=== PATIENT | male | born 1940 | race Caucasian/White ===

== ENCOUNTER → 2017-04-06 | Outpatient (CLI) | payer OTHER ==
[~2017-04-06] MED LIST: AZOPT OPHTH1 %/10 M1 OPHTHALMIC; COMBIGAN EYE DR10 ML; COZAAR 25 MG TA25 M2 PO; DIPHENHIST50 MG PO; EYE DROPS; EYE DROPS OPHTHALMIC; GLIPIZIDE XL5 MG PO; GLUCOPHAGE1000 MG PO; LANTUS SOL100 UNIT/1 SQ; LANTUSSOLASTAR; MECLIZINE HCL12.5 MG PO; MEDROL32 MG PO; OCUVITE TABLET1 EAC1 PO; OMEPRAZOLE20 M2 PO; PRADAXA150 MG PO; TIMOLOL MA0.5 %/5 M2 OPHTHALMIC; XALATAN2.5 ML OPHTHALMIC
== END ==
LOC: MRI 14:02
DX: M25.472 Effusion, left ankle (principal); M25.572 Pain in left ankle and joints of left foot

== ENCOUNTER 2019-06-20 15:58 | Emergency (ER) | payer OTHER ==
[~2019-06-20] VITALS: Ht 172.7 cm; Wt 77.1 kg
[2019-06-20 16:34] LABS: ABSOLUTE NEUTROPHILS 9.4 thou/uL (1.4-8.2); BASOPHILS 0.2 % (0.0-2.0); EOSINOPHILS 0.3 % (0.0-3.0); HEMATOCRIT 42.2 % (42.0-52.0); HEMOGLOBIN 14.1 gm/dL (14.0-18.0); LYMPHOCYTES 2.3 % (24.0-44.0); MCHC 33.5 g/dL (28.0-37.0); MCV 83.5 fL (80.0-100.0); PLATELET COUNT 127 thou/uL (150-400); POLYS 94.2 % (36.0-66.0); RBC 5.05 mil/uL (4.50-6.00); RDW 14.8 % (10.5-14.5)
[2019-06-20 16:38] LABS: ANION GAP 11 mmol/L (7-16); BUN 41 mg/dL (7-18); CALCIUM 9.1 mg/dL (8.5-10.1); CHLORIDE 99 mmol/L (98-107); CO2 25 mmol/L (21-32); CREATININE 1.9 mg/dL (0.7-1.3); GLUCOSE 125 mg/dL (74-106); SODIUM 135 mmol/L (136-145)
[2019-06-20 16:49] LABS: ALBUMIN 3.7 g/dL (3.4-5.0); MAGNESIUM 1.8 mg/dL (1.8-2.4); SGOT 23 U/L (15-37); SGPT 24 U/L (30-65); TOTAL BILIRUBIN 0.8 mg/dL (<0.1-1.0); TOTAL PROTEIN 8.3 g/dL (6.4-8.2); TROPONIN-I <0.06 ng/mL (<0.06)
[2019-06-20 17:04] VITALS: BP 170/81
[2019-06-20] MEDS ORDERED: PROSCAR 5MG TABL5 MG PO (17:54)
[2019-06-20] MEDS ORDERED: LANTUS100 UNIT/M SUBQ (17:54)
[2019-06-20] MEDS ORDERED: FLOMAX0.4 MG PO (17:55)
[2019-06-20 17:57] LABS: URINE BILIRUBIN NEGATIVE (Negative); URINE BLOOD 2+ (Negative); URINE CLARITY CLEAR; URINE COLOR YELLOW; URINE GLUCOSE-RANDOM* NEGATIVE (Negative); URINE KETONES NEGATIVE (Negative); URINE LEUKOCYTES-REFLEX NEGATIVE (Negative); URINE NITRITE-REFLEX NEGATIVE (Negative); URINE PROTEIN (DIPSTICK) 2+ (Negative); URINE SPECIFIC GRAVITY 1.025 (1.005-1.035); URINE UROBILINOGEN 0.2 E.U./dl (0.2-1.0)
[2019-06-20 18:04] LABS: SQUAMOUS 0-3 Few /LPF (0-3); URINE WBC-REFLEX 0-5 Rare /HPF (0-5)
[2019-06-20 18:05] LABS: BACTERIA-REFLEX None Seen /HPF (None Seen); CRYSTALS None Seen /LPF (None Seen); HYALINE CASTS 0-3 Few /LPF (None Seen); URINE RBC >20 Many /HPF (0-2)
--- NOTE | 2019-06-22 08:25 | EKG ---
[address] [place] [address] ELECTROCARDIOGRAM REPORT Name: SANG CARNEY Room [facility]: [facility] [id number] Admission: 06/20/19 Attend Phys: Discharge: 06/20/19 Date of : 36 Report #: [id number] THIS REPORT FOR: //name// [facility] ED Test Date: 2019-06-20 Test Time: 16:37:41 Pat Name: SANG CARNEY Department: Room: Gender: M Senior Search Marketing Analyst: EDEL : 1940 Requested By: Getachew Batista Order Number: [id number] MD: Jesus Howard Measurements Intervals [place] Rate: 98 P: [place]: QRS: -54 QRSD: 122 T: 117 QT: 364 QTc: 465 Interpretive Statements Atrial fibrillation Left bundle branch block Compared to ECG 12/20/2012 13:45:47 Left bundle-branch block now present Left ventricular hypertrophy no longer present Left anterior fascicular block no longer present Electronically Signed On 06-22-2019 8:25:08 CDT by Jesus Howard [email or web address] <ELECTRONICALLY SIGNED> By: Jesus Howard MD 06/22/19 0825 [id number] [id number] Jesus Howard MD /VICKI
== END 2019-06-20 19:00 | disposition home or self-care (01) ==
LOC: ER 15:58
PROVIDERS: Emergency Medicine
DX: R42 Dizziness and giddiness (principal); I10 Essential (primary) hypertension; E11.9 Type 2 diabetes mellitus without complications; K21.9 Gastro-esophageal reflux disease without esophagitis; I48.91 Unspecified atrial fibrillation; Z87.891 Personal history of nicotine dependence; Z90.89 Acquired absence of other organs; Z79.4 Long term (current) use of insulin; Z91.041 Radiographic dye allergy status

== ENCOUNTER → 2020-04-01 | Outpatient (CLI) | payer OTHER ==
[~2020-04-01] MED LIST changes: +FLOMAX0.4 MG PO; +LANTUS100 UNIT/M SUBQ; +PROSCAR 5MG TABL5 MG PO
== END ==
LOC: SJCVC 15:10
PROVIDERS: ATTEND Internal Medicine
DX: R94.31 Abnormal electrocardiogram [ECG] [EKG] (principal); I48.21 Permanent atrial fibrillation; I35.0 Nonrheumatic aortic (valve) stenosis; E78.5 Hyperlipidemia, unspecified; I12.9 Hypertensive chronic kidney disease with stage 1 through stage 4 chronic kidney disease, or unspecified chronic kidney disease; E11.22 Type 2 diabetes mellitus with diabetic chronic kidney disease; N18.3 Chronic kidney disease, stage 3 (moderate); I65.23 Occlusion and stenosis of bilateral carotid arteries; E11.51 Type 2 diabetes mellitus with diabetic peripheral angiopathy without gangrene

== ENCOUNTER → 2020-06-21 | Outpatient (CLI) | payer OTHER | LOC: MRI 10:02 | PROVIDERS: ATTEND Internal Medicine | DX: I67.89 Other cerebrovascular disease (principal); R26.81 Unsteadiness on feet; G31.9 Degenerative disease of nervous system, unspecified; G93.89 Other specified disorders of brain; K11.8 Other diseases of salivary glands ==

== ENCOUNTER → 2020-10-01 | Outpatient (CLI) | payer OTHER | LOC: SJCVCIMAG 09:14 | PROVIDERS: ATTEND Internal Medicine | DX: I35.1 Nonrheumatic aortic (valve) insufficiency (principal); R94.31 Abnormal electrocardiogram [ECG] [EKG]; I44.7 Left bundle-branch block, unspecified; I48.21 Permanent atrial fibrillation; I73.9 Peripheral vascular disease, unspecified; E78.5 Hyperlipidemia, unspecified; E11.22 Type 2 diabetes mellitus with diabetic chronic kidney disease; I13.10 Hypertensive heart and chronic kidney disease without heart failure, with stage 1 through stage 4 chronic kidney disease, or unspecified chronic kidney disease; N18.30 Chronic kidney disease, stage 3 unspecified; I65.23 Occlusion and stenosis of bilateral carotid arteries; Z79.82 Long term (current) use of aspirin; Z79.899 Other long term (current) drug therapy; Z87.891 Personal history of nicotine dependence ==

== ENCOUNTER 2021-01-24 14:11 | Inpatient (IN) | payer OTHER ==
[~2021-01-24] VITALS: Ht 172.7 cm; Wt 69.1 kg
[2021-01-24 14:12] VITALS: BP 159/94
[2021-01-24 14:26] LABS: ABSOLUTE NEUTROPHILS 6.5 thou/uL (1.4-8.2); BASOPHILS 0.2 % (0.0-2.0); EOSINOPHILS 0.1 % (0.0-3.0); HEMATOCRIT 49.3 % (42.0-52.0); HEMOGLOBIN 16.3 gm/dL (14.0-18.0); LYMPHOCYTES 4.3 % (24.0-44.0); MCH 28.4 pg (26.0-34.0); MCV 86.1 fL (80.0-100.0); PLATELET COUNT 144 thou/uL (150-400); POLYS 87.4 % (36.0-66.0); RBC 5.73 mil/uL (4.50-6.00); RDW 14.3 % (10.5-14.5); WBC 7.4 thou/uL (4.0-11.0)
[2021-01-24 14:34] LABS: CALCIUM 9.8 mg/dL (8.5-10.1); CREATININE 3.4 mg/dL (0.7-1.3); POTASSIUM 5.2 mmol/L (3.5-5.1)
[2021-01-24 14:41] LABS: TOTAL BILIRUBIN 1.3 mg/dL (0.2-1.0); TOTAL PROTEIN 8.5 g/dL (6.4-8.2)
[2021-01-24 17:33] LABS: URINE BILIRUBIN NEGATIVE (Negative); URINE BLOOD 3+ (Negative); URINE GLUCOSE-RANDOM* 3+ (Negative); URINE KETONES 1+ (Negative); URINE PROTEIN (DIPSTICK) 2+ (Negative); URINE UROBILINOGEN 0.2 E.U./dl (0.2-1.0)
[2021-01-24 17:35] LABS: URINE LEUKOCYTES-REFLEX 2+ (Negative); URINE NITRITE-REFLEX POSITIVE (Negative)
[2021-01-24 17:36] LABS: URINE CLARITY CLOUDY; URINE COLOR LIGHT YELLOW
[2021-01-24 17:41] LABS: SQUAMOUS None Seen /LPF (0-3)
[2021-01-24 17:42] LABS: BACTERIA-REFLEX >30 Many /HPF (None Seen); CASTS None Seen /LPF (None Seen); CRYSTALS None Seen /LPF (None Seen); URINE RBC 3-10 Few /HPF (0-2); URINE WBC-REFLEX >25 Many /HPF (0-5)
[2021-01-24 17:44] VITALS: BP 142/102
[2021-01-24 18:22] VITALS: BP 171/99
[2021-01-24 19:30] VITALS: BP 151/91
[2021-01-25] VITALS (7 sets, daily range): BP systolic 102–130; BP diastolic 54–82
[2021-01-25 01:06] LABS: GLYCOHEMOGLOBIN (HGB A1C) 13.6 % (4.8-5.6)
[2021-01-25 02:16] LABS: ABSOLUTE NEUTROPHILS 6.2 thou/uL (1.4-8.2); BASOPHILS 0.1 % (0.0-2.0); HEMATOCRIT 47.7 % (42.0-52.0); HEMOGLOBIN 15.2 gm/dL (14.0-18.0); LYMPHOCYTES 6.6 % (24.0-44.0); MCH 27.9 pg (26.0-34.0); MCHC 31.9 g/dL (28.0-37.0); MCV 87.5 fL (80.0-100.0); MONOCYTES 9.2 % (1.0-8.0); PLATELET COUNT 113 thou/uL (150-400); POLYS 84.1 % (36.0-66.0); RBC 5.45 mil/uL (4.50-6.00); RDW 14.3 % (10.5-14.5); WBC 7.3 thou/uL (4.0-11.0)
--- NOTE | 2021-01-25 02:17 | NUR ---
ASSUMED PT CARE AT NAGE OF SHIFT, PT ADMITTED FROM ER WITH LACTIC ACIDOSIS, UTI AND DEHYDRATION, PT IS SHIVERING COMPLAINING OF COLD, TEMP 100.3, BS 363, PRN TYL AND INSULIN GIVEN PER MAR, DENIES PAIN OR SOB, VSS, ADMISSION ASSESSMENT, EDUCATION AND HISTORY COMPLETED, CRITICAL LACTIC ACID AND PROCALCITONIN CALLED TO SHEET METAL LAYOUT WORKER, NO NEW ORDERS, PT REMAINS INCONTINENT OF URINE, ATTEMPTED TO PUT SALGADO CATHETER WITH NO SUCCESS, WILL CONTINUE TO MONITOR AND FOLLOW POC
[2021-01-25 02:24] LABS: CALCIUM 8.9 mg/dL (8.5-10.1); MAGNESIUM 2.1 mg/dL (1.8-2.4)
[2021-01-25 02:25] LABS: POTASSIUM 4.1 mmol/L (3.5-5.1)
--- NOTE | 2021-01-25 07:55 | NUR ---
TALKED TO PT'S TO GIVE UPDATE ON PT'S CONDITION. SON WILL COME TO HOSPITAL TO TRAILER RENTAL CLERK PT'S MEDS TO TAKE HOME. WILL CONTINUE TO ASSESS.
--- NOTE | 2021-01-25 13:25 | NUR ---
ASSESS WOUNDS LOWER EXTREMITIES WITH BRE CADET AND INSTRUCTED TO USE BACITRACIN AND DRESS WOUNDS.
--- NOTE | 2021-01-25 15:57 | NUR ---
PLACED DRESSING WITH VASELIN GAZE AND KERLEX LEFT MIDDLE TOES, TEGADERM RIGHT METATARSAL. WILL AWAIT WOUND CARE ON WEDNESDAY FOR MORE DETAILED RECOMEDATIONS.
--- NOTE | 2021-01-25 16:00 | NUR ---
DR. MCCABE INSTRUCT TO DISCONTINUE SERIAL LACTIC ACIDS.
--- NOTE | 2021-01-25 18:44 | NUR ---
PT HAVING LARGE INCONTINENT URINE WITH WET CHUXS. INSTRUCTED NO TO START A SALGADO BY DR. ETIENNE. TRIED CONDOM CATH HOWEVER WOULD NOT STAY ON. BEDSIDE REPORT GIVEN TO TY MONTGOMERY.
[2021-01-26 02:51] VITALS: BP 151/83
--- NOTE | 2021-01-26 04:53 | NUR ---
CARE ASSUMED AT CHANGE OF SHIFT, ALERT AND ORIENTED, FORGETFUL, DENIES PAIN OR SOB, VSS, ASSESSMENTS CHARTED, COTINUES ON IV FLUIDS, PT SLEPT MOST OF THE NIGHT, DENIES CONCERNS, WILL CONTINUE TO NONITOR AND FOLLOW POC, PLAN IS REHAB WHEN STABLE
[2021-01-26 09:02] VITALS: BP 134/71
--- NOTE | 2021-01-26 09:13 | HC ---
[facility] [place] [address] CONSULTATION Name: SANG CARNEY Room #: 216-P [facility] IN M.R.#: [id number] Admission: 01/24/21 Attend Phys: Peggy Merida MD Discharge: Date of : 38 Report #: [id number] THIS REPORT FOR: cc: Gerber Velazquez MD, Christopher B. MD [place], Allen B. MD ~ DATE OF SERVICE: 01/25/2021 WOUND CARE CONSULTATION NOTE REASON FOR CONSULTATION: Abrasions of legs and toes. HISTORY OF PRESENT ILLNESS: The patient is an 80-year-old gentleman brought by emergency medical services to [facility] Emergency Room for self-care deficit, recurrent falls, and altered mental status. He apparently was found in the bathroom for covered with feces, unable to get up. Family thought he is unable to care for himself. Since admission, he has been oriented, alert and conversant. Electrocardiogram showed atrial fibrillation with left bundle branch block. MEDICAL PROBLEMS: Dizziness, failure to thrive, hyponatremia, lactic acidosis, dehydration, history of urinary tract infection. ALLERGIES: IODINATED CONTRAST MEDIA. LABORATORY DATA: White blood count 7.3, hemoglobin 15.2, hematocrit 47.7, glucose 193. PHYSICAL EXAMINATION: GENERAL: Shows a thin elderly gentleman who is alert and conversant. HEENT: Mucous membranes are moist. NECK: Supple. ABDOMEN: Scaphoid. LUNGS: Respirations unlabored. EXTREMITIES: Shows some skin pigment deposition of both lower legs due to the ankle, indicative of chronic venous stasis. The patient has scattered small abrasions of his anterior pretibial leg, the largest measuring 1 cm x 1 cm. These are superficial, has some abrasions of skin of the toes as well. These are scattered and small, and not cellulitic. The patient states "I have long fingernails." IMPRESSION: 1. Deficit of self-care. 2. Altered mental status. 3. Debility and immobility. [facility] [address] [place] [address] CONSULTATION Name: SANG CARNEY Room #: 216-P [facility] IN M.R.#: [id number] Admission: 01/24/21 Attend Phys: Peggy Merida MD Discharge: Date of : 38 Report #: [id number] 4. Abrasions of bilateral legs and toes, superficial and not cellulitic. 5. Venous insufficiency of lower extremities. PLAN: We will care for the superficial abrasions of his legs, feet and toes with topical bacitracin with Xeroform wrapped around the toes. Foam borders on the abrasions of his legs. Wound care team will follow. <ELECTRONICALLY SIGNED> By: Facundo Montana MD 01/26/21 0913 1329 1339 Facundo Montana MD /nt
[2021-01-26 11:43] LABS: CALCIUM 8.1 mg/dL (8.5-10.1); CREATININE 3.3 mg/dL (0.7-1.3); POTASSIUM 4.6 mmol/L (3.5-5.1)
[2021-01-26 12:44] VITALS: BP 127/71
[2021-01-26 16:10] VITALS: BP 126/78
--- NOTE | 2021-01-26 18:41 | NUR ---
PATIENT AWAKE FOR MOST MEALS BUT ONLY EATS LESS THAN 50% WHEN ENCOURAGED. HE DENIES PAIN. BLADDER SCAN INDICATED GREATER THAN 400MLS. CALLED PLACED UROLOGY. NEW ORDERS FOR FLOMAX. UROLOGY STATED 400MLS IS COMMON FOR PATIENT AT THIS AGE AND NO NEED TO ANY FURTHER INTERVENTION.
[2021-01-26 19:22] VITALS: BP 150/73
[2021-01-27 03:13] LABS: CREATININE 3.4 mg/dL (0.7-1.3); POTASSIUM 3.7 mmol/L (3.5-5.1)
--- NOTE | 2021-01-27 03:18 | NUR ---
ASSESSMENTS CHARTED, MEDS CHARTED GIVEN. PATIENT RESTING IN BED DURING SHIFT. CONFUSED AND FORGETFUL. IT HELPS TO TELL THE PATIENT WHAT YOU ARE GOING TO DO PRIOR TO DOING IT SINCE HE IS LEGALLY BLIND. IT PREVENTS HIM FROM BEING STARTLED AND FEELING OUT OF CONTROL. UROLOGIST SAW THE PATIENT, FEELS PATIENT IS AT BASELINE WITH RETENTION AND URINE FLOW. PATIENT WAS BLADDER SCANNED WITH 324 RETAINED. NO NEED TO STRAIGHT CATH PATIENT AT THIS TIME. WARM COMPRESS SUGGESTED. FALL PRECAUTIONS IN PLACE DURING SHIFT. PATIENT IS AN UP WITH 2 ASSIST TO BSC. HAD BOWEL MOVMENT.
[2021-01-27 05:07] VITALS: BP 144/71
--- NOTE | 2021-01-27 07:16 | EKG ---
[address] [place] [address] ELECTROCARDIOGRAM REPORT Name: ANGELIKASANGSTEPHANIE CADENA Room #: 216-P ADM IN M.R.#: [id number] Admission: 01/24/21 Attend Phys: Peggy Merida MD Discharge: Date of : 38 Report #: [id number] [facility] ED Test Date: 2021-01-24 Test Time: 15:27:10 Pat Name: SANG CARNEY Department: Room: 216 Gender: M Skate Maker: : 1940 Requested By: Juan Osei Order Number: [id number] MD: Mendel Bates Measurements Intervals [place] Rate: 89 P: [place]: QRS: -65 QRSD: 129 T: 74 QT: 372 QTc: 453 Interpretive Statements Atrial fibrillation Left bundle branch block Compared to ECG 06/20/2019 16:37:41 No significant changes Electronically Signed On 01-27-2021 7:16:09 CDT by Mendel Bates [email or web address] <ELECTRONICALLY SIGNED> By: Mendel Bates MD, [facility] 01/27/21 0716 1527 1527 Mendel Bates MD, FACC /EPI
--- NOTE | 2021-01-27 07:17 | EKG ---
[address] [place] [address] ELECTROCARDIOGRAM REPORT Name: ANGELIKASANGSTEPHANIE CADENA Room #: 216-P ADM IN M.R.#: [id number] Admission: 01/24/21 Attend Phys: Peggy Merida MD Discharge: Date of : 38 Report #: [id number] [facility] Test Date: 2021-01-24 Test Time: 19:37:37 Pat Name: SANG CARNEY Department: Room: 216 P Gender: M Vision Impaired Teacher: FSCHWALBE : 1940 Requested By: Peggy Merida Order Number: [id number] MD: Mendel Bates Measurements Intervals [place] Rate: 125 P: [place]: QRS: -60 QRSD: 126 T: 121 QT: 325 QTc: 469 Interpretive Statements Atrial fibrillation Left bundle branch block Baseline wander in lead(s) V5 Compared to ECG 01/24/2021 15:27:10 No significant changes Electronically Signed On 01-27-2021 7:17:31 CDT by Mendel Bates [email or web address] <ELECTRONICALLY SIGNED> By: Mendel Bates MD, [facility] 01/27/21 0717 36 36 Mendel Bates MD, FAC /EPI
[2021-01-27 07:30] VITALS: BP 135/74
[2021-01-27 11:30] VITALS: BP 122/72
[2021-01-27 16:15] VITALS: BP 120/62
--- NOTE | 2021-01-27 17:48 | NUR ---
Met with patient who resides at home alone. Patient fell at home. Cannot recall how long he was on the floor. Patient independent with adls captain's assistant. He is blind. All needs on one level in home. Has basement in home. Son drives patient to apts and delivers groceries. Discussed post acute care. Plan to call son regarding skilled list.
[2021-01-27 20:05] VITALS: BP 122/65
--- NOTE | 2021-01-28 02:17 | NUR ---
ASSESSMENTS CHARTED, MEDS CHARTED GIVEN. PATIENT RESTING IN BED DURING SHIFT. RECEIVING MAINTENANCE FLUIDS DURING SHIFT. PATIENT REMAINS INCONTINENT OF URINE. FALL PRECAUTIONS IN PLACE DURING SHIFT.
[2021-01-28 04:30] VITALS: BP 124/69
[2021-01-28 07:18] LABS: CALCIUM 7.4 mg/dL (8.5-10.1); CREATININE 3.3 mg/dL (0.7-1.3); POTASSIUM 3.5 mmol/L (3.5-5.1)
--- NOTE | 2021-01-28 08:31 | NUR ---
Note Given: Y Facility List Provided:Y Facility Cady: None chosen at this time Ina Nelson NP discussed BPCI with this pt 01/27/2021
--- NOTE | 2021-01-28 08:32 | NUR ---
Note Given: Y Facility List Provided:Y Facility Cady: None chosen at this time Ina Nelson NP discussed BPCI with this pt 01/27/2021
[2021-01-28 09:35] VITALS: BP 130/67
[2021-01-28] MEDS ORDERED: KEFLEX500 M1 PO ×2 (11:07→15:11)
[2021-01-28] MEDS ORDERED: BAYER CHEWABLE81 MG PO (11:07)
[2021-01-28] MEDS ORDERED: FLOMAX0.4 MG PO (11:07)
[2021-01-28] MEDS ORDERED: BACITRACIN ZINC14 GM TOP (11:07)
[2021-01-28] MEDS ORDERED: MIRALAX17 GM PO (11:07)
--- NOTE | 2021-01-28 12:25 | NUR ---
Spoke with [facility] who was accepting of patient however will need further support from son for home. Sp with son at bedside. Discussed with plan for [facility] goal to be home and likely need for increase services in home. Son reports he can no longer live at home alone. Pipes are not working well in home. He cannot uses a walker in hallways. Patient with hx of falls at home. Son reports he has schizoprenia and cannot support any more than he is at this time. Referrals for post acute care for to [facility]. Requested COVID test.
[2021-01-28 12:42] VITALS: BP 121/68
[2021-01-28] MEDS ORDERED: SODIUM BICARBO650 M3 PO (15:11)
[2021-01-28 16:00] VITALS: BP 132/63
--- NOTE | 2021-01-28 16:59 | NUR ---
FAXED REFERRAL TO [facility] RECEIVED CONFIRMATION LEFT MSG WITH GEO IN ADM. FAXED REFERRAL TO [facility] RECEIVED CONFIRMATION AND LEFT MSG WITH SUSANA IN ADM.
--- NOTE | 2021-01-28 17:35 | NUR ---
Rigoberto questions if patient can sign consents to admit. Ignite sp with son and wants to schedule onsight eval in am. Son with no preference of facility he does not have DPOA medical or financial.
--- NOTE | 2021-01-28 18:08 | NUR ---
RECEIVED PT'S CARE AROUND 0715; PT. ON BED; RESTING WITH EYES CLOSED; AFIB ON THE MONITOR; EQUAL CHEST RISING NOTICED; DURING AM ASSESSMENT PT. AOX4; VERY FORGETFULL THROUGH THE DAY; RAVINDER [place] ROUNDING EARLY ON THE MORNING; PT. AGREED WITH SALGADO PLACEMENT; BLADDER SCANNER SHOWED 415 ML; PA ABLE TO PLACE SALGADO; OBTAINED 750 ML; POOR APPETITE THROUGH THE DAY; ST. "I AM TIRED"; "I WANT SLEEP"; INSULIN REPLACED; COVID TEST SEND; PER SOCIAL SERVICE WORKER WAITING ON PLACEMENT; PER DR. LOWELL BRISCOE TO CONTINUE FLUIDS; UP TO THE CHAIR WITH PT AND OT; ASSESSMENT CHARGED; FOLLOWING POC; WILL PASS ON REPORT;
[2021-01-28 20:15] VITALS: BP 143/76
[2021-01-29 04:30] VITALS: BP 141/66
[2021-01-29 05:23] LABS: ALBUMIN 1.6 g/dL (3.4-5.0); CALCIUM 7.4 mg/dL (8.5-10.1); PHOSPHORUS 2.7 mg/dL (2.5-4.9); POTASSIUM 3.3 mmol/L (3.5-5.1)
--- NOTE | 2021-01-29 05:32 | NUR ---
ASSESSMENTS CHARTED. MEDS CHARTED GIVEN. PATIENT RESTING WELL DURING SHIFT. SALGADO IN PLACE GOOD OUTPUT. FALL PRECAUTIONS IN PLACE DURING SHIFT.
[2021-01-29 08:00] VITALS: BP 134/59
--- NOTE | 2021-01-29 09:13 | NUR ---
ASSUMED PT CARE AT 0700. 0800- ASSESSMENT PERFORMED CHARTED, MEDICATION ADMINISTRATION. PT SITTING UP IN THE CHAIR FOR BREAKFAST. VSS. BRITTANEY CONTINUE TO MONITOR AND FOLLOW POC.
[2021-01-29] MEDS ORDERED: HUMALOG100 UNIT/1 SUBQ (11:57)
[2021-01-29] MEDS ORDERED: LANTUS100 UNIT/M SUBQ (11:57)
--- NOTE | 2021-01-29 12:03 | NUR ---
IGNITE IN ROOM TALKING WITH PATIENT ABOUT PLACEMENT FOLLOWING D/C. PT VOICES NO CONCERNS AT THIS TIME. VSS. WILL CONTINUE TO MONITOR AND FOLLOW POC.
[2021-01-29 12:40] VITALS: BP 133/75
--- NOTE | 2021-01-29 15:38 | NUR ---
PT'S SON DECIDED ON [facility]GNITE/[facility] RESORT NOTIFIED FACILITY OF CHOICE. FAXED DC ORDERS/SUMMARY TO FACILITY SPOKE WITH RAFA IN ADM SHE RECEIVED ORDERS AND ARRANGED WC VAN FOR 1600 TODAY. PT'S SON NOTIFIED OF DC AN TIME OF TRANSPORT AND IN AGREEMENT. UNIT NOTIFIED AND CHART COPY PER US. RN TO CALL REPORT TO [phone].
== END 2021-01-29 16:45 | DRG 871 ==
LOC: ER 14:11 → 2N 17:43 → EROBS 17:43 → 2N 18:21
PROVIDERS: Emergency Medicine; Hospitalist; Nurse Practitioner; Physician Assistant; ADMIT Hospitalist; ATTEND Hospitalist
DX: A41.9 Sepsis, unspecified organism (principal); J15.0 Pneumonia due to Klebsiella pneumoniae; N17.9 Acute kidney failure, unspecified; M62.82 Rhabdomyolysis; E87.1 Hypo-osmolality and hyponatremia; N13.6 Pyonephrosis; E44.0 Moderate protein-calorie malnutrition; E86.0 Dehydration; R53.81 Other malaise; N18.9 Chronic kidney disease, unspecified; E11.22 Type 2 diabetes mellitus with diabetic chronic kidney disease; I87.2 Venous insufficiency (chronic) (peripheral); S80.812A Abrasion, left lower leg, initial encounter; S80.811A Abrasion, right lower leg, initial encounter; X58.XXXA Exposure to other specified factors, initial encounter; N35.919 Unspecified urethral stricture, male, unspecified site; D69.6 Thrombocytopenia, unspecified; I12.9 Hypertensive chronic kidney disease with stage 1 through stage 4 chronic kidney disease, or unspecified chronic kidney disease; K21.9 Gastro-esophageal reflux disease without esophagitis; Z20.822 Contact with and (suspected) exposure to COVID-19; Z79.4 Long term (current) use of insulin; Z98.42 Cataract extraction status, left eye; Z79.899 Other long term (current) drug therapy; Z98.41 Cataract extraction status, right eye; Z91.041 Radiographic dye allergy status; Z87.891 Personal history of nicotine dependence; Y93.89 Activity, other specified; Y92.89 Other specified places as the place of occurrence of the external cause; Y99.8 Other external cause status; Z68.23 Body mass index [BMI] 23.0-23.9, adult
CPT/HCPCS: 10081

== ENCOUNTER 2021-03-21 07:38 | Inpatient (IN) | payer OTHER ==
[~2021-03-21] VITALS: Ht 152.4 cm; Wt 71.5 kg
--- NOTE | ~2021-03-21 | EMS ---
[place] [id number] EMS Patient Care Report Name: SANG CARNEY Room #: 216-P [facility] IN M.R.#: [id number] Admission: 03/21/21 Attend Phys: Carlos Mcnair Discharge: 03/24/21 Date of : 38 Report #: [id number] THIS REPORT FOR: //name// Report Transmitted: 03/24/2021 21:46 EMS Care Summary [place], [place]/[facility] Incident [id number] @ 03/21/2021 07:06 Incident Location [address] [place] [address] Patient SANG CARNEY Male, 81 Years 1940 Patient Address [address] [place] [address] Patient History Other,Congestive Heart Failure (CHF),Hypertension (HTN),Gastro-Esophageal Reflux Disease (GERD),Atrial Fibrillation,Glaucoma,Chronic Kidney Disease,Type 2 Diabetes, Patient Allergies Intravenous Dye, Patient Medications Tamsulosin, Finasteride, Omeprazole, Aspirin, Insulin, Docusate Sodium, Lantus, Chief Complaint Altered mental status Disposition Transported No Lights/[place] Dispatch Reason Diabetic Problem Transported To [facility] Narrative Called for an unconscious. Upon arrival, pt was unresponsive, diaphoretic with a low BS per home healthcare. 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 [address] [address] EMS Patient Care Report Name: SANG CARNEY Room #: 216-P [facility] IN M.R.#: [id number] Admission: 03/21/21 Attend Phys: Carlos Mcnair Discharge: 03/24/21 Date of : 38 Report #: [id number] Pt was ran the night before when for the same thing. IV and D10W. Pt now more awake, but still confused. Vitals obtained. Home healthcare said his son wanted him transported. He was moved to the EMS cot and loaded into the ambulance w/o incident. Vitals obtained. En route: no significant changes. RR to ER. Arrived: pt taken to ER, pt care & report to ER staff. Initial Vitals @07:27P: 49,SpO2: 95, @07:23P: 49,R: 16,Pain: 0/10,GCS: 7,Glucose: 23,CO: 0,SpO2: 98, @07:27P: 61,R: 16,BP: 163/84,Pain: 0/10,GCS: 14,Glucose: 109,SpO2: 95,Revised Trauma: 12,UT Suspected: false @07:25P: 54,R: 16,BP: 172/98,Pain: 0/10,GCS: 14,SpO2: 97,Revised Trauma: 12, Assessments @07:13MENTAL:Unresponsive,SKIN:Diaphoresis,HEENT:LUNG SOUNDS:ABDOMEN:PELVIS//GI:EXTREMITIES:Left Arm: No Abnormalities,Right Arm: No Abnormalities,Left Leg: No Abnormalities,Right Leg: No Abnormalities,PULSE:Radial: 2+ Normal,NEURO:No Abnormalities,@07:20MENTAL:Person Oriented,Place Oriented,Confused,SKIN:Cold,HEENT:LUNG SOUNDS:ABDOMEN:PELVIS//GI:EXTREMITIES:Left Arm: No Abnormalities,Right Arm: No Abnormalities,Left Leg: No Abnormalities,Right Leg: No Abnormalities,PULSE:Radial: 2+ Normal,NEURO:No Abnormalities, Impression Diabetic Hypoglycemia Procedures @07:15Saline Lock 8cc (18 ga) Site: Forearm-RightResponse: UnchangedSucceeded@07:26StretcherResponse: Unchanged@07:243-Lead ECGResponse: UnchangedSucceeded@07:17Dextrose 10% - 250 Milliliters (ml) - Intravenous (IV)Response: Improved@07:13ALS AssessmentResponse: UnchangedSucceeded Timeline 07:05,Call Received 07:05,Dispatch Notified 07:06,Dispatched 07:07,En Route 07:12,On Scene 07:13,At Patient 07:13,ALS Assessment,Response: UnchangedSucceeded, 07:15,Saline Lock 8cc 18 ga Site: Forearm-Right,Response: UnchangedSucceeded, 07:17,Dextrose 10% - 250 Milliliters (ml) - Intravenous (IV),Response: Improved 07:23,BP: / M,PULSE: 49,RR: 16 R,SPO2: 98 Ox,ETCO2: ,B,PAIN: 0,GCS: 7, 07:24,3-Lead ECG,Response: UnchangedSucceeded, 07:25,BP: 172/98 M,PULSE: 54,RR: 16 R,SPO2: 97 Ox,ETCO2: ,BG: ,PAIN: 0,GCS: 14, [facility] [address] [place] [address] EMS Patient Care Report Name: SANG CARNEY Room #: 216-P [facility] IN M.R.#: [id number] Admission: 03/21/21 Attend Phys: Carlos Mcnair Discharge: 03/24/21 Date of : 38 Report #: [id number] 07:26,Stretcher,Response: Unchanged 07:27,BP: / M,PULSE: 49,RR: R,SPO2: 95 Ox,ETCO2: ,BG: ,PAIN: ,GCS: , 07:27,Depart Scene 07:27,BP: 163/84 M,PULSE: 61,RR: 16 R,SPO2: 95 Ox,ETCO2: ,B,PAIN: 0,GCS: 14, 07:45,At Destination 08:00,Call Closed Disclaimer v1.1 Copyright 2020 [employer] This EMS Care Summary contains data elements from the applicable legal record (which may be displayed differently). It is designed to provide pertinent information for the following purposes: continuity of care, clinical quality, and state data reporting. The complete legal record is available to ED staff and administrators of the receiving hospital in [facility]'s Patient Tracker. All data is provided "as is."
[~2021-03-21 07:38] MED LIST changes: +BACITRACIN ZINC14 GM TOP; +BAYER CHEWABLE81 MG PO; +HUMALOG100 UNIT/1 SUBQ; +KEFLEX500 M1 PO; +MIRALAX17 GM PO; +SODIUM BICARBO650 M3 PO
[2021-03-21 07:39] VITALS: BP 182/93
[2021-03-21 08:17] LABS: ABSOLUTE NEUTROPHILS 4.9 thou/uL (1.4-8.2); BASOPHILS 0.6 % (0.0-2.0); EOSINOPHILS 1.4 % (0.0-3.0); HEMATOCRIT 39.4 % (42.0-52.0); HEMOGLOBIN 12.6 gm/dL (14.0-18.0); LYMPHOCYTES 24.9 % (24.0-44.0); MCH 27.4 pg (26.0-34.0); MCV 85.6 fL (80.0-100.0); MONOCYTES 7.8 % (1.0-8.0); PLATELET COUNT 222 thou/uL (150-400); POLYS 65.3 % (36.0-66.0); RBC 4.61 mil/uL (4.50-6.00); RDW 15.5 % (10.5-14.5); WBC 7.5 thou/uL (4.0-11.0)
[2021-03-21 08:33] LABS: CALCIUM 9.2 mg/dL (8.5-10.1); POTASSIUM 4.5 mmol/L (3.5-5.1)
[2021-03-21 08:34] LABS: APTT 28.4 Seconds (24.5-32.8); INR 1.07; PROTIME 11.6 Seconds (10.5-12.1)
[2021-03-21 08:38] LABS: ALBUMIN 3.1 g/dL (3.4-5.0); TOTAL BILIRUBIN 0.4 mg/dL (0.2-1.0); TOTAL PROTEIN 8.8 g/dL (6.4-8.2)
--- NOTE | 2021-03-21 09:22 | EKG ---
[address] [address] ELECTROCARDIOGRAM REPORT Name: SANG CARNEY TAMMI [id number] Admission: 03/21/21 Attend Phys: Discharge: Date of : 38 Report #: [id number] [facility] ED Test Date: 2021-03-21 Test Time: 08:59:33 Pat Name: SANG CARNEY Department: Room: Gender: M Bread Panner: KF : 1940 Requested By: Min Garvey Order Number: [id number] MD: Mendel Bates Measurements Intervals [place] Rate: 66 P: [place]: QRS: -48 QRSD: 142 T: 59 QT: 516 QTc: 541 Interpretive Statements Atrial fibrillation Left bundle branch block Compared to ECG 01/24/2021 19:37:37 No significant changes Electronically Signed On 03-21-2021 9:21:55 CDT by Mendel Bates [email or web address] <ELECTRONICALLY SIGNED> By: Mendel Bates MD, [facility] 03/21/21 0921 0859 0859 Mendel Bates MD, FACC /EPI
[2021-03-21 09:53] VITALS: BP 133/65
[2021-03-21 10:15] LABS: URINE BILIRUBIN NEGATIVE (Negative); URINE BLOOD 2+ (Negative); URINE CLARITY SL CLOUDY; URINE COLOR OTHER; URINE GLUCOSE-RANDOM* NEGATIVE (Negative); URINE KETONES NEGATIVE (Negative); URINE LEUKOCYTES-REFLEX TRACE (Negative); URINE NITRITE-REFLEX NEGATIVE (Negative); URINE PROTEIN (DIPSTICK) 1+ (Negative); URINE UROBILINOGEN 0.2 E.U./dl (0.2-1.0)
[2021-03-21 10:20] VITALS: BP 163/98
[2021-03-21 10:22] LABS: URINE WBC-REFLEX 6-15 Few /HPF (0-5)
[2021-03-21 10:23] LABS: CASTS None Seen /LPF (None Seen); CRYSTALS None Seen /LPF (None Seen); SQUAMOUS None Seen /LPF (0-3); URINE RBC >20 Many /HPF (NONE SEEN)
[2021-03-21 10:25] LABS: BACTERIA-REFLEX 1-9 Few /HPF (None Seen)
[2021-03-21 11:34] VITALS: BP 140/77
[2021-03-21 16:00] VITALS: BP 138/72
[2021-03-21 19:18] VITALS: BP 143/79
[2021-03-22 03:30] VITALS: BP 137/66
[2021-03-22 03:36] LABS: BASOPHILS 0.5 % (0.0-2.0); EOSINOPHILS 3.8 % (0.0-3.0); HEMATOCRIT 30.6 % (42.0-52.0); LYMPHOCYTES 31.8 % (24.0-44.0); MCH 27.4 pg (26.0-34.0); MCHC 32.7 g/dL (28.0-37.0); MCV 83.7 fL (80.0-100.0); MONOCYTES 7.3 % (1.0-8.0); PLATELET COUNT 161 thou/uL (150-400); POLYS 56.6 % (36.0-66.0); RBC 3.65 mil/uL (4.50-6.00); RDW 15.3 % (10.5-14.5); WBC 5.2 thou/uL (4.0-11.0)
[2021-03-22 04:01] LABS: ALBUMIN 2.3 g/dL (3.4-5.0); CALCIUM 8.2 mg/dL (8.5-10.1); CREATININE 1.8 mg/dL (0.7-1.3); PHOSPHORUS 3.3 mg/dL (2.6-4.7); POTASSIUM 4.4 mmol/L (3.5-5.1)
[2021-03-22 08:00] VITALS: BP 146/76
[2021-03-22 11:30] VITALS: BP 156/79
[2021-03-22 15:20] VITALS: BP 135/73
[2021-03-22 19:20] VITALS: BP 141/72
[2021-03-23 05:02] VITALS: BP 158/68
[2021-03-23 07:28] VITALS: BP 147/70
[2021-03-23 11:42] VITALS: BP 148/74
[2021-03-23 15:45] VITALS: BP 144/66
[2021-03-23 20:16] VITALS: BP 146/86
[2021-03-24 03:59] VITALS: BP 150/62
[2021-03-24 05:00] LABS: ALBUMIN 2.2 g/dL (3.4-5.0); CALCIUM 8.5 mg/dL (8.5-10.1); CREATININE 1.7 mg/dL (0.7-1.3); PHOSPHORUS 3.5 mg/dL (2.5-4.9); POTASSIUM 4.3 mmol/L (3.5-5.1)
[2021-03-24] MEDS ORDERED: CEFUROXIME500 MG PO (08:13)
[2021-03-24 10:41] VITALS: BP 150/62
== END 2021-03-24 12:50 | disposition home health service (06) | DRG 871 ==
LOC: ER 07:38 → EROBS 10:41 → 2N 10:41
PROVIDERS: Emergency Medicine; ADMIT Hospitalist; ATTEND Hospitalist
DX: A41.9 Sepsis, unspecified organism (principal); R65.21 Severe sepsis with septic shock; N17.0 Acute kidney failure with tubular necrosis; G93.41 Metabolic encephalopathy; N17.9 Acute kidney failure, unspecified; K21.9 Gastro-esophageal reflux disease without esophagitis; I48.91 Unspecified atrial fibrillation; B96.1 Klebsiella pneumoniae [K. pneumoniae] as the cause of diseases classified elsewhere; R53.81 Other malaise; I12.9 Hypertensive chronic kidney disease with stage 1 through stage 4 chronic kidney disease, or unspecified chronic kidney disease; E11.22 Type 2 diabetes mellitus with diabetic chronic kidney disease; N18.9 Chronic kidney disease, unspecified; D69.6 Thrombocytopenia, unspecified; N30.90 Cystitis, unspecified without hematuria; H54.8 Legal blindness, as defined in USA; R68.0 Hypothermia, not associated with low environmental temperature; E11.649 Type 2 diabetes mellitus with hypoglycemia without coma; Z98.42 Cataract extraction status, left eye; Z98.41 Cataract extraction status, right eye; Z79.4 Long term (current) use of insulin; Z79.82 Long term (current) use of aspirin; Z91.041 Radiographic dye allergy status; Z79.899 Other long term (current) drug therapy; Z87.891 Personal history of nicotine dependence
CPT/HCPCS: 10081; 10194

== ENCOUNTER → 2021-04-08 | Outpatient (CLI) | payer OTHER ==
[~2021-04-08] MED LIST changes: +CEFUROXIME500 MG PO
== END ==
LOC: SJCVC 13:10
PROVIDERS: ATTEND Internal Medicine
DX: I48.21 Permanent atrial fibrillation (principal); R94.31 Abnormal electrocardiogram [ECG] [EKG]; I21.9 Acute myocardial infarction, unspecified; E11.22 Type 2 diabetes mellitus with diabetic chronic kidney disease; I12.9 Hypertensive chronic kidney disease with stage 1 through stage 4 chronic kidney disease, or unspecified chronic kidney disease; N18.30 Chronic kidney disease, stage 3 unspecified; E78.5 Hyperlipidemia, unspecified; I65.23 Occlusion and stenosis of bilateral carotid arteries; I35.0 Nonrheumatic aortic (valve) stenosis; I73.9 Peripheral vascular disease, unspecified; K22.70 Barrett's esophagus without dysplasia; K21.9 Gastro-esophageal reflux disease without esophagitis; G47.33 Obstructive sleep apnea (adult) (pediatric); E11.51 Type 2 diabetes mellitus with diabetic peripheral angiopathy without gangrene; I48.0 Paroxysmal atrial fibrillation; Z95.1 Presence of aortocoronary bypass graft; Z88.8 Allergy status to other drugs, medicaments and biological substances; Z79.82 Long term (current) use of aspirin; Z79.899 Other long term (current) drug therapy; Z87.891 Personal history of nicotine dependence; Z86.73 Personal history of transient ischemic attack (TIA), and cerebral infarction without residual deficits; Z82.49 Family history of ischemic heart disease and other diseases of the circulatory system

== ENCOUNTER → 2021-04-23 | Outpatient (CLI) | payer OTHER ==
[~2021-04-23] MED LIST changes: +BENADRYL25 MG PO; +COLACE100 MG PO; +DOXYCYCLINE 10100 MG PO; +LANTUS SUBQ; +METHYLPREDNISOL32 MG PO; +PLAVIX 75 MG TA75 MG PO; +VITAMIN C100 MG PO
== END ==
LOC: SJCVCIMAG 08:09
PROVIDERS: ATTEND Nuclear Medicine Nuclear Cardiology
DX: I70.203 Unspecified atherosclerosis of native arteries of extremities, bilateral legs (principal); E11.22 Type 2 diabetes mellitus with diabetic chronic kidney disease; I12.9 Hypertensive chronic kidney disease with stage 1 through stage 4 chronic kidney disease, or unspecified chronic kidney disease; N18.9 Chronic kidney disease, unspecified; E11.51 Type 2 diabetes mellitus with diabetic peripheral angiopathy without gangrene; I73.9 Peripheral vascular disease, unspecified; I35.0 Nonrheumatic aortic (valve) stenosis; I48.91 Unspecified atrial fibrillation; E78.5 Hyperlipidemia, unspecified; G47.33 Obstructive sleep apnea (adult) (pediatric); K22.70 Barrett's esophagus without dysplasia; I48.0 Paroxysmal atrial fibrillation; K21.9 Gastro-esophageal reflux disease without esophagitis; Z87.440 Personal history of urinary (tract) infections; Z87.891 Personal history of nicotine dependence; Z79.82 Long term (current) use of aspirin; Z79.4 Long term (current) use of insulin; Z79.899 Other long term (current) drug therapy; Z95.820 Peripheral vascular angioplasty status with implants and grafts

== ENCOUNTER 2021-04-25 16:23 | Inpatient (IN) | payer OTHER ==
[~2021-04-25] VITALS: Ht 170.2 cm; Wt 68.9 kg
[2021-04-25 11:17] LABS: HEMATOCRIT 32.6 % (42.0-52.0); HEMOGLOBIN 10.7 gm/dL (14.0-18.0); MCH 27.4 pg (26.0-34.0); MCHC 32.9 g/dL (28.0-37.0); MCV 83.5 fL (80.0-100.0); RBC 3.91 mil/uL (4.50-6.00); RDW 14.8 % (10.5-14.5); WBC 5.9 thou/uL (4.0-11.0)
[2021-04-25 12:09] LABS: CALCIUM 9.2 mg/dL (8.5-10.1); POTASSIUM 5.2 mmol/L (3.5-5.1)
[2021-04-25 17:50] VITALS: BP 132/78
[2021-04-25 19:05] VITALS: BP 132/78
--- NOTE | 2021-04-25 19:40 | NUR ---
PATIENT HERE FOR 3 HRS POST PROCEDURE. PATIENT DC TO HOME VIA WHEEL CHAIR AND PRIVATE VEHICLE. DC PAPERWORK DISCUSSED WITH PATIENT AND CAREGIVER AT BEDSIDE. PATIENT SCHEDULED TO RETURN WEDNESDAY FOR PROCEDURE. ALL QUESTIONS ANSWERED. IV REMOVED FROM RIGHT AC. VSS.
== END 2021-04-25 19:40 | disposition home or self-care (01) | DRG 272 ==
LOC: CATH 16:23 → 2N 16:24
PROVIDERS: ADMIT Nuclear Medicine Nuclear Cardiology; ATTEND Nuclear Medicine Nuclear Cardiology
PROC: B4181ZZ Fluoroscopy of Bilateral Renal Arteries using Low Osmolar Contrast (ICD-10-PCS; principal; 2021-04-25)
PROC: 04CM3ZZ Extirpation of Matter from Right Popliteal Artery, Percutaneous Approach (ICD-10-PCS; principal; 2021-04-25)
PROC: 04CT3ZZ Extirpation of Matter from Right Peroneal Artery, Percutaneous Approach (ICD-10-PCS; principal; 2021-04-25)
PROC: 047M34Z Dilation of Right Popliteal Artery with Drug-eluting Intraluminal Device, Percutaneous Approach (ICD-10-PCS; principal; 2021-04-25)
PROC: B41D1ZZ Fluoroscopy of Aorta and Bilateral Lower Extremity Arteries using Low Osmolar Contrast (ICD-10-PCS; principal; 2021-04-25)
PROC: 047T34Z Dilation of Right Peroneal Artery with Drug-eluting Intraluminal Device, Percutaneous Approach (ICD-10-PCS; principal; 2021-04-25)
DX: E11.51 Type 2 diabetes mellitus with diabetic peripheral angiopathy without gangrene (principal); I25.10 Atherosclerotic heart disease of native coronary artery without angina pectoris; I35.0 Nonrheumatic aortic (valve) stenosis; E78.5 Hyperlipidemia, unspecified; N18.9 Chronic kidney disease, unspecified; E11.22 Type 2 diabetes mellitus with diabetic chronic kidney disease; I12.9 Hypertensive chronic kidney disease with stage 1 through stage 4 chronic kidney disease, or unspecified chronic kidney disease; K21.9 Gastro-esophageal reflux disease without esophagitis; G47.33 Obstructive sleep apnea (adult) (pediatric); I48.0 Paroxysmal atrial fibrillation; Z98.49 Cataract extraction status, unspecified eye; Z82.49 Family history of ischemic heart disease and other diseases of the circulatory system; Z80.3 Family history of malignant neoplasm of breast; Z87.891 Personal history of nicotine dependence
CPT/HCPCS: 10081

== ENCOUNTER → 2021-04-30 | Outpatient (CLI) | payer OTHER ==
[~2021-04-30] VITALS: Ht 170.2 cm; Wt 69.1 kg
[2021-04-30 10:06] VITALS: BP 174/88
[2021-04-30 10:11] LABS: CALCIUM 8.8 mg/dL (8.5-10.1); CREATININE 1.9 mg/dL (0.7-1.3); POTASSIUM 5.1 mmol/L (3.5-5.1)
== END | disposition home or self-care (01) ==
LOC: CATH 07:50
PROVIDERS: ATTEND Nuclear Medicine Nuclear Cardiology
DX: E11.51 Type 2 diabetes mellitus with diabetic peripheral angiopathy without gangrene (principal); I70.248 Atherosclerosis of native arteries of left leg with ulceration of other part of lower leg; L97.929 Non-pressure chronic ulcer of unspecified part of left lower leg with unspecified severity; I10 Essential (primary) hypertension; I25.10 Atherosclerotic heart disease of native coronary artery without angina pectoris; E78.5 Hyperlipidemia, unspecified; K21.9 Gastro-esophageal reflux disease without esophagitis; I48.91 Unspecified atrial fibrillation; Z98.890 Other specified postprocedural states; Z79.899 Other long term (current) drug therapy; Z87.891 Personal history of nicotine dependence; Z79.4 Long term (current) use of insulin; Z91.041 Radiographic dye allergy status; Z79.01 Long term (current) use of anticoagulants

== ENCOUNTER 2021-05-14 14:56 | Inpatient (IN) | payer OTHER ==
[~2021-05-14] VITALS: Ht 172.7 cm; Wt 68.5 kg
[2021-05-14 15:01] VITALS: BP 129/65
[2021-05-14 16:05] LABS: ABSOLUTE NEUTROPHILS 3.9 thou/uL (1.4-8.2); BASOPHILS 0.6 % (0.0-2.0); HEMATOCRIT 33.4 % (42.0-52.0); LYMPHOCYTES 20.6 % (24.0-44.0); MCH 27.2 pg (26.0-34.0); MCHC 32.9 g/dL (28.0-37.0); MCV 82.5 fL (80.0-100.0); MONOCYTES 9.3 % (1.0-8.0); PLATELET COUNT 206 thou/uL (150-400); POLYS 59.5 % (36.0-66.0); RBC 4.05 mil/uL (4.50-6.00); RDW 14.8 % (10.5-14.5); WBC 6.5 thou/uL (4.0-11.0)
[2021-05-14 16:17] LABS: CALCIUM 8.8 mg/dL (8.5-10.1); CREATININE 2.1 mg/dL (0.7-1.3); POTASSIUM 3.6 mmol/L (3.5-5.1)
[2021-05-14 16:23] LABS: TOTAL BILIRUBIN 0.4 mg/dL (0.2-1.0)
[2021-05-14] MEDS ORDERED: MEN 50 PLUS MU1 EACH PO (16:37)
--- NOTE | 2021-05-14 16:44 | NUR ---
ROLLY (ASSISTANT ASSOCIATE PROFESSOR OF [facility]) WOULD LIKE TO BE CONTACTED REGARDING PATIENTS CARE. FAMILY LIVES OUT OF STATE. ROLLY #[phone] TITA (ROLLY'S BOSS) IS SECOND TO CALL TITA # [phone] HSEILA FROM [facility] COMES TO PATIENTS HOME TO CARE FOR CATHETER
[2021-05-14 23:08] VITALS: BP 138/64
[2021-05-14 23:58] VITALS: BP 138/60
--- NOTE | 2021-05-15 | NUR ---
CALLED ROLLY REGARDING PATIENTS PLACEMENT & MOVING TO NEW ROOM. LEFT VOICE MAIL.
[2021-05-15 05:32] LABS: HEMATOCRIT 30.2 % (42.0-52.0); HEMOGLOBIN 10.1 gm/dL (14.0-18.0); MCH 27.5 pg (26.0-34.0); MCHC 33.3 g/dL (28.0-37.0); MCV 82.7 fL (80.0-100.0); RBC 3.65 mil/uL (4.50-6.00); RDW 14.9 % (10.5-14.5)
[2021-05-15 05:57] LABS: CALCIUM 8.1 mg/dL (8.5-10.1); CREATININE 1.9 mg/dL (0.7-1.3)
--- NOTE | 2021-05-15 06:50 | NUR ---
PT ARRIVED TO THE UNIT FROM ED AT APPROXIMATELTY. ALERT/ORIENT TIMES THREE. SALGADO BAG FROM HOME NOTED WITH BLOOD TINGE OUT PUT. VSS, AFEBRILE. WILL CONTINUE TO MONITOR.
[2021-05-15 07:07] VITALS: BP 152/67
--- NOTE | 2021-05-15 16:04 | NUR ---
ASSESSMENT: CM REVIEWED CHART AND SPOKE WITH PATIENT AT THE BEDSIDE. PT WAS ADMITTED DUE TO DVT AND CELLULITIS. PT REPORTS THAT HE LIVES AT HOME AND HAS A CAREGIVER 17/05. CM SPOKE WITH PATIENTS SON TO VERIFY AND PT HAS 17/05 PRIVATE DUTY SERVICES THROUGH [facility]. CM SPOKE WITH TITA [phone] FROM [facility] AND CONFIRMED INFORMATION THAT SOMEONE IS WITH PATIENT 17/05 AND PT IS NORMALLY INDEPENDENT/STAND BY ASSIST. THEY ASSIST WITH MEAL PREP, MEDICATION REMINDERS, EMPTYING HIS CATHETER AND ANYTHING PT NEEDS. PT HAS A ROLLATER WALKER HE TYPICALLY USES. PT IS CURRENTLY ALSO IN SERVICE WITH [facility]. CM FAXED CLINICAL TO [facility] TO UPDATE. PT HAS ABOUT 2 STEPS TO ENTER THE HOME AND ALL HIS NEEDS CAN BE MET ON THE MAIN LEVEL. PT WAS AT [facility] IN JANUARY FOR A SNF STAY AND HAS BEEN IN SERVICE WITH SINCE. CM DISCUSSED ROLE. PT IS HOPEFUL HE WILL BE ABLE TO RETURN HOME WITH HOME HEALTH SERVICES. CM WILL CONTINUE TO FOLLOW.
--- NOTE | 2021-05-15 16:28 | NUR ---
ASSUMED CARE OF PT AT 0700 THIS MORNING. PT WAS A/OX4 WITH SOME CONFUSION. PT IS SEEN FOR CELLULITIS, ULCERATIONS ON TOES. PT WAS SEEN BY WOUND DR. FOR EVAL AND WOUND NURSEHAS RE-DRESSED THE 3RD AND 4TH DIGITS ON THE RT FOOT. ASSESSMENTS NOTED IN CHART OTHERWISE UNREMARKABLE. CALL LIGHT AND OTHER NEEDS ARE PLACED IN REACH. IV IN RT FA, SL, ABx. MEDS AND OTHER TX GIVEN NEEDED AND SCHEDULED. CONTINUED OBSERVING PT AND NOTED ANY CHANGES. ROLLY, FRAME SAMPLE AND PATTERN SUPERVISOR FROM HOME HEALTH CONTACTED ME ASKING IF I KNEW WHEN THE PT WOULD BE DISCHARGED. I TOLD HER MORE THAN LIKELY HE'LL BE HERE THROUGH THE WEEKEND. [phone] WOULD LIKE TO BE CONTACTED IF ANY CHANGES IN DISCHARGE.
[2021-05-15 16:33] VITALS: BP 145/73
[2021-05-15 20:11] VITALS: BP 154/73
--- NOTE | 2021-05-16 04:24 | NUR ---
Pt. rested quietly during the night when checked on during frequent rounds. He offers no c/o pain. Alert and oriented with some confusion on time. Bed alarm is on.
[2021-05-16 07:00] VITALS: BP 128/70
--- NOTE | 2021-05-16 10:07 | NUR ---
Assumed care of pt at 0700. Denies pain. Teran catheter in place. IR consulted. Antitiotics infusing. Q2h turn. Call light within reach. Fall precautions in place. Will continue to monitor.
[2021-05-16 14:01] VITALS: BP 128/70
[2021-05-16 16:00] VITALS: BP 119/43
--- NOTE | 2021-05-16 16:39 | NUR ---
ON-GOING ASSESSMENT: HARMAN REVIEWED CHART AND SPOKE WITH ATTENDING AND PT. IR HAS BEEN CONSULTED. PT WILL LIKELY DISCHARGE TOMORROW/THIS WEEKEND BACK HOME WITH IN HOUSE 17/05 [facility]. CONTACT TITA LEON FUR GLOSSER BENITO WHEN DISCHARGING AT [phone] TO NOTIFY OF DISCHARGE AND SHE WILL ARRANGE TRANSPORT. FAX ORDERS TO [phone]. ALSO NOTIFY [facility] [phone] AND FAX ORDERS TO THEM AT [phone]. PT HAS ALL NEEDED EQUIPMENT AT HOME. HARMAN ALSO MET WITH ROLLY VILA SURGICAL CLINICAL REVIEWER TO NOTIFY OF LIKELY DISCHARGE THIS WEEKEND. HARMAN ALSO SPOKE WITH PATIENTS SON SIMA TO UPDATE AND HE REQUEST TO BE CONTACTED AT THE TIME OF DISCHARGE AND IS AGREEABLE WITH THE PLAN [phone].
--- NOTE | 2021-05-16 16:44 | NUR ---
ON-GOING ASSESSMENT: HARMAN REVIEWED CHART AND SPOKE WITH ATTENDING AND PT. IR HAS BEEN CONSULTED. PT WILL LIKELY DISCHARGE TOMORROW/THIS WEEKEND BACK HOME WITH IN HOUSE 17/05 [facility] AND [facility]. CONTACT TITA LEON MARKING MACHINE TENDER BENITO WHEN DISCHARGING AT [phone] TO NOTIFY OF DISCHARGE AND SHE WILL ARRANGE TRANSPORT. FAX ORDERS TO [phone]. ALSO NOTIFY [facility] [phone] AND FAX ORDERS TO THEM AT [phone]. PT HAS ALL NEEDED EQUIPMENT AT HOME. HARMAN ALSO MET WITH ROLLY VILA CAFE COOK TO NOTIFY OF LIKELY DISCHARGE THIS WEEKEND. HARMAN ALSO SPOKE WITH PATIENTS SON SIMA TO UPDATE AND HE REQUEST TO BE CONTACTED AT THE TIME OF DISCHARGE AND IS AGREEABLE WITH THE PLAN [phone].
[2021-05-16 19:10] VITALS: BP 143/65
[2021-05-17 01:06] LABS: GLYCOHEMOGLOBIN (HGB A1C) 7.3 % (4.8-5.6)
--- NOTE | 2021-05-17 05:45 | NUR ---
PT DENIED PAIN SO FAR.BETADINE TO HIS BLE SECOND TOE.P CONT ON IV ABX.EDEMA TO HIS LE.PT AFEBRILE SO FAR.NO BM NOTED THIS SHIFT.PT ABLE TO MAKE HIS NEEDS KNOWN.TRUDI LIGHT WITHIN REACH.
[2021-05-17 07:19] VITALS: BP 136/63
[2021-05-17] MEDS ORDERED: VIBRAMYCIN 100100 M2 PO (11:43)
[2021-05-17] MEDS ORDERED: ELIQUIS5 MG PO (11:52)
--- NOTE | 2021-05-17 15:00 | NUR ---
PT ASSESSED AT START OF SHIFT. FEELING BETTER. EATING AND DRINKING WELL. URINE OUTPUT GOOD. PT TRANSFERRING BACK HOME W/ HOME CAREGIVERS AT THIS TIME.
== END 2021-05-17 15:16 | disposition home or self-care (01) | DRG 300 ==
LOC: ER 14:56 → EROBS 18:42 → 4S 18:42
PROVIDERS: Nurse Practitioner Family; ADMIT Hospitalist; ATTEND Hospitalist
DX: I82.431 Acute embolism and thrombosis of right popliteal vein (principal); N17.9 Acute kidney failure, unspecified; N13.30 Unspecified hydronephrosis; E44.0 Moderate protein-calorie malnutrition; I77.1 Stricture of artery; I82.411 Acute embolism and thrombosis of right femoral vein; I25.10 Atherosclerotic heart disease of native coronary artery without angina pectoris; K21.9 Gastro-esophageal reflux disease without esophagitis; H54.8 Legal blindness, as defined in USA; I12.9 Hypertensive chronic kidney disease with stage 1 through stage 4 chronic kidney disease, or unspecified chronic kidney disease; E11.51 Type 2 diabetes mellitus with diabetic peripheral angiopathy without gangrene; E11.22 Type 2 diabetes mellitus with diabetic chronic kidney disease; I48.91 Unspecified atrial fibrillation; N13.9 Obstructive and reflux uropathy, unspecified; N18.30 Chronic kidney disease, stage 3 unspecified; L97.529 Non-pressure chronic ulcer of other part of left foot with unspecified severity; G47.33 Obstructive sleep apnea (adult) (pediatric); E78.5 Hyperlipidemia, unspecified; L97.519 Non-pressure chronic ulcer of other part of right foot with unspecified severity; Z68.23 Body mass index [BMI] 23.0-23.9, adult; Z98.49 Cataract extraction status, unspecified eye; Z79.899 Other long term (current) drug therapy; Z79.01 Long term (current) use of anticoagulants; Z79.4 Long term (current) use of insulin; Z91.041 Radiographic dye allergy status
CPT/HCPCS: 10100; 10102

== ENCOUNTER → 2021-06-03 | Outpatient (CLI) | payer OTHER ==
[~2021-06-03] MED LIST changes: +ELIQUIS5 MG PO; +MEN 50 PLUS MU1 EACH PO; +VIBRAMYCIN 100100 M2 PO
== END ==
LOC: HYPER 07:50
PROVIDERS: ATTEND Emergency Medicine
DX: E11.621 Type 2 diabetes mellitus with foot ulcer (principal); L89.893 Pressure ulcer of other site, stage 3; L97.521 Non-pressure chronic ulcer of other part of left foot limited to breakdown of skin; L89.894 Pressure ulcer of other site, stage 4; L97.516 Non-pressure chronic ulcer of other part of right foot with bone involvement without evidence of necrosis; E11.51 Type 2 diabetes mellitus with diabetic peripheral angiopathy without gangrene; E11.22 Type 2 diabetes mellitus with diabetic chronic kidney disease; N18.9 Chronic kidney disease, unspecified; E11.21 Type 2 diabetes mellitus with diabetic nephropathy; I48.20 Chronic atrial fibrillation, unspecified; K21.9 Gastro-esophageal reflux disease without esophagitis; Z98.49 Cataract extraction status, unspecified eye; Z79.4 Long term (current) use of insulin; Z79.01 Long term (current) use of anticoagulants; Z79.82 Long term (current) use of aspirin

== ENCOUNTER → 2021-06-10 | Outpatient (CLI) | payer OTHER | LOC: HYPER 08:16 | PROVIDERS: ATTEND Emergency Medicine | DX: E11.621 Type 2 diabetes mellitus with foot ulcer (principal); L89.893 Pressure ulcer of other site, stage 3; L97.521 Non-pressure chronic ulcer of other part of left foot limited to breakdown of skin; L89.894 Pressure ulcer of other site, stage 4; L97.516 Non-pressure chronic ulcer of other part of right foot with bone involvement without evidence of necrosis; S91.115A Laceration without foreign body of left lesser toe(s) without damage to nail, initial encounter; E11.51 Type 2 diabetes mellitus with diabetic peripheral angiopathy without gangrene; E11.22 Type 2 diabetes mellitus with diabetic chronic kidney disease; N18.6 End stage renal disease; E11.21 Type 2 diabetes mellitus with diabetic nephropathy; I48.20 Chronic atrial fibrillation, unspecified; K21.9 Gastro-esophageal reflux disease without esophagitis; Z98.49 Cataract extraction status, unspecified eye; Z79.4 Long term (current) use of insulin; Z79.01 Long term (current) use of anticoagulants; Z79.82 Long term (current) use of aspirin; X58.XXXA Exposure to other specified factors, initial encounter; Y93.89 Activity, other specified; Y92.89 Other specified places as the place of occurrence of the external cause; Y99.8 Other external cause status ==

== ENCOUNTER → 2021-06-24 | Outpatient (CLI) | payer OTHER | LOC: HYPER 07:52 | PROVIDERS: ATTEND Emergency Medicine | DX: E11.621 Type 2 diabetes mellitus with foot ulcer (principal); L89.893 Pressure ulcer of other site, stage 3; L97.521 Non-pressure chronic ulcer of other part of left foot limited to breakdown of skin; L89.894 Pressure ulcer of other site, stage 4; L97.516 Non-pressure chronic ulcer of other part of right foot with bone involvement without evidence of necrosis; E11.51 Type 2 diabetes mellitus with diabetic peripheral angiopathy without gangrene; E11.22 Type 2 diabetes mellitus with diabetic chronic kidney disease; N18.6 End stage renal disease; E11.21 Type 2 diabetes mellitus with diabetic nephropathy; I48.20 Chronic atrial fibrillation, unspecified; K21.9 Gastro-esophageal reflux disease without esophagitis; Z98.49 Cataract extraction status, unspecified eye; Z79.4 Long term (current) use of insulin; Z79.01 Long term (current) use of anticoagulants; Z79.82 Long term (current) use of aspirin ==

== ENCOUNTER 2021-06-28 12:33 | Emergency (ER) | payer OTHER ==
[~2021-06-28] VITALS: Ht 172.7 cm; Wt 66.7 kg
[2021-06-28 14:09] LABS: URINE BILIRUBIN NEGATIVE (Negative); URINE BLOOD 3+ (Negative); URINE CLARITY SL CLOUDY; URINE COLOR YELLOW; URINE GLUCOSE-RANDOM* NEGATIVE (Negative); URINE KETONES NEGATIVE (Negative); URINE LEUKOCYTES-REFLEX 1+ (Negative); URINE NITRITE-REFLEX NEGATIVE (Negative); URINE PROTEIN (DIPSTICK) 1+ (Negative); URINE SPECIFIC GRAVITY 1.025 (1.005-1.035); URINE UROBILINOGEN 0.2 E.U./dl (0.2-1.0)
[2021-06-28 14:21] LABS: CASTS None Seen /LPF (None Seen); SQUAMOUS 0-3 Few /LPF (0-3); URINE RBC 3-10 Few /HPF (NONE SEEN); URINE WBC-REFLEX 6-15 Few /HPF (0-5)
[2021-06-28 14:22] LABS: BACTERIA-REFLEX 1-9 Few /HPF (None Seen); CRYSTALS None Seen /LPF (None Seen); YEAST-REFLEX Present (None Seen)
[2021-06-28] MEDS ORDERED: CEPHALEXIN500 MG PO (14:45)
[2021-06-28] MEDS ORDERED: NYSTATIN15 G3 TOP (15:04)
[2021-06-28 15:30] VITALS: BP 112/78
== END 2021-06-28 15:30 | disposition home or self-care (01) ==
LOC: ER 12:33
PROVIDERS: Emergency Medicine
DX: T83.018A Breakdown (mechanical) of other urinary catheter, initial encounter (principal); N39.0 Urinary tract infection, site not specified; K21.9 Gastro-esophageal reflux disease without esophagitis; I73.9 Peripheral vascular disease, unspecified; I10 Essential (primary) hypertension; I48.91 Unspecified atrial fibrillation; I25.10 Atherosclerotic heart disease of native coronary artery without angina pectoris; E78.5 Hyperlipidemia, unspecified; Z90.49 Acquired absence of other specified parts of digestive tract; Z90.89 Acquired absence of other organs; Z79.82 Long term (current) use of aspirin; Z79.899 Other long term (current) drug therapy; Z79.891 Long term (current) use of opiate analgesic; Z79.4 Long term (current) use of insulin; Z91.041 Radiographic dye allergy status; Y84.8 Other medical procedures as the cause of abnormal reaction of the patient, or of later complication, without mention of misadventure at the time of the procedure; Y92.89 Other specified places as the place of occurrence of the external cause

== ENCOUNTER → 2021-07-02 | Outpatient (CLI) | payer OTHER ==
[~2021-07-02] MED LIST changes: +CEPHALEXIN500 MG PO; +NYSTATIN15 G3 TOP
== END ==
LOC: HYPER 08:13
PROVIDERS: ATTEND Emergency Medicine
DX: E11.621 Type 2 diabetes mellitus with foot ulcer (principal); L89.893 Pressure ulcer of other site, stage 3; L97.521 Non-pressure chronic ulcer of other part of left foot limited to breakdown of skin; L89.894 Pressure ulcer of other site, stage 4; L97.516 Non-pressure chronic ulcer of other part of right foot with bone involvement without evidence of necrosis; E11.51 Type 2 diabetes mellitus with diabetic peripheral angiopathy without gangrene; E11.22 Type 2 diabetes mellitus with diabetic chronic kidney disease; N18.6 End stage renal disease; E11.21 Type 2 diabetes mellitus with diabetic nephropathy; I48.20 Chronic atrial fibrillation, unspecified; K21.9 Gastro-esophageal reflux disease without esophagitis; Z98.49 Cataract extraction status, unspecified eye; Z79.4 Long term (current) use of insulin; Z79.01 Long term (current) use of anticoagulants; Z79.82 Long term (current) use of aspirin

== ENCOUNTER 2021-07-03 14:00 | Emergency (ER) | payer OTHER ==
[~2021-07-03] VITALS: Ht 172.7 cm; Wt 68.0 kg
--- NOTE | ~2021-07-03 | EMS ---
[address] [address] EMS Patient Care Report Name: SANG CARNEY Room #: DEP MAITE Palacios#: [id number] Admission: 07/03/21 Attend Phys: Discharge: 07/03/21 Date of : 36 Report #: [id number] THIS REPORT FOR: //name// Report Transmitted: 07/03/2021 16:17 EMS Care Summary [facility] MED-ACT Incident [id number] @ 07/03/2021 12:34 Incident Location [address] [place] [address] Patient SANG CARNEY Male, 81 Years 1940 Patient Address [address] [place] [address] Patient History Diabetes,Atrial Fibrillation, Patient Allergies Dye allergy, Patient Medications Omeprazole, Minocycline, Cephalexin, Timolol, Lantus, ASA, Eliquis, Cipro, Docusate Sodium, Clopidogrel, Tamsulosin, Novolog, Chief Complaint low blood sugar Disposition Transported No Lights/[place] [facility] Reason Diabetic Problem Transported To [facility] Narrative Dispatched to the above doctor's office for a person with reported hypoglycemia. Arrived on scene to find pt. sitting in a reclining exam chair, AOx4, in no obvious distress, attended to by office staff and home health [address] [address] EMS Patient Care Report Name: SANG CARNEY Room #: DEP [facility] Palacios#: [id number] Admission: 07/03/21 Attend Phys: Discharge: 07/03/21 Date of : 38 Report #: [id number] providers who brought patient to his appointment. Staff report that the pt. 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 Several hours later the home health worker drove the pt. to his doctor appointment where they were met in the parking lot by the home health care dirt supervisor. The dirt supervisor stated that when she opened the door to help the pt. out of the car she immediately noticed he was diaphoretic. The staff member who drove the pt. informed the dirt supervisor that his blood sugar was low. Pt. was brought into the clinic and had his bG measured and found to be in the 50's. Doctor at the clinic stated he contacted 911 and gave the pt. seven 4 mg glucose tablets prior to EMS arrival. Home health dirt supervisor stated that the pt. is currently taking 3 different antibiotics which has been causing the pt. to have difficulty regulating his bG. Antibiotics were for UTI and yeast infection due to urinary catheter. Assessment, VS, bG as charted. Assisted pt. in eating peanut butter crackers and rechecked bG as charted. Initially the doctor on scene stated that he would like pt. to remain at the clinic while eating and waiting for his bG to normalize. After almost one hour without a rise in bG the pt's doctor agreed that the pt. should be transported to the ED for evaluation and monitoring. Assisted pt. to cot, secured with straps and moved cot to ambulance without incident. Biocom to ED, bedside report and transfer of care to ED staff at [facility]. 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,Surgical Mask on Patient, [facility] [address] [place] [address] EMS Patient Care Report Name: SANG CARNEY [id number] Admission: 07/03/21 Attend Phys: Discharge: 07/03/21 Date of : 38 Report #: [id number] BAG MAKING MACHINE TENDER,BP: / M,PULSE: ,RR: R,SPO2: Ox,ETCO2: ,B,PAIN: ,GCS: , 12:33,Call Received 12:33,Psap Call 12:34,Dispatched 12:35,En Route 12:43,On Scene 12:45,At Patient 12:47,BP: 157/91 M,PULSE: 72,RR: 18 R,SPO2: Ox,ETCO2: ,B,PAIN: 4,GCS: 15, 13:05,BP: / M,PULSE: ,RR: R,SPO2: Ox,ETCO2: ,B,PAIN: ,GCS: , 13:30,BP: / M,PULSE: ,RR: R,SPO2: Ox,ETCO2: ,B,PAIN: ,GCS: , 13:37,BP: / M,PULSE: 61,RR: R,SPO2: 58 Ox,ETCO2: ,BG: ,PAIN: ,GCS: , 13:38,BP: 141/81 M,PULSE: 78,RR: R,SPO2: 100 Ox,ETCO2: ,BG: ,PAIN: ,GCS: , 13:42,BP: / M,PULSE: ,RR: R,SPO2: Ox,ETCO2: ,B,PAIN: ,GCS: , 13:48,Depart Scene 13:50,BP: 137/80 M,PULSE: 81,RR: R,SPO2: 100 Ox,ETCO2: ,BG: ,PAIN: ,GCS: , 13:56,BP: 128/80 M,PULSE: 80,RR: R,SPO2: 100 Ox,ETCO2: ,BG: ,PAIN: ,GCS: , 13:58,At Destination 14:19,Call Closed Disclaimer v1.1 Copyright 2020 [employer] This EMS Care Summary contains data elements from the applicable legal record (which may be displayed differently). It is designed to provide pertinent information for the following purposes: continuity of care, clinical quality, and state data reporting. The complete legal record is available to ED staff and administrators of the receiving hospital in [facility]'s Patient Tracker. All data is provided "as is."
[2021-07-03 14:50] LABS: ABSOLUTE NEUTROPHILS 5.1 thou/uL (1.4-8.2); BASOPHILS 0.7 % (0.0-2.0); EOSINOPHILS 9.7 % (0.0-3.0); HEMATOCRIT 35.5 % (42.0-52.0); HEMOGLOBIN 11.3 gm/dL (14.0-18.0); LYMPHOCYTES 11.1 % (24.0-44.0); MCH 26.3 pg (26.0-34.0); MCHC 31.8 g/dL (28.0-37.0); MCV 82.6 fL (80.0-100.0); MONOCYTES 5.5 % (1.0-8.0); PLATELET COUNT 286 thou/uL (150-400); RDW 16.8 % (10.5-14.5)
[2021-07-03 14:58] LABS: CALCIUM 8.7 mg/dL (8.5-10.1); CREATININE 2.2 mg/dL (0.7-1.3); POTASSIUM 4.3 mmol/L (3.5-5.1)
[2021-07-03 15:04] LABS: ALBUMIN 2.7 g/dL (3.4-5.0); TOTAL BILIRUBIN 0.4 mg/dL (0.2-1.0); TOTAL PROTEIN 7.5 g/dL (6.4-8.2)
[2021-07-03 16:09] VITALS: BP 135/84
== END 2021-07-03 16:11 | disposition home or self-care (01) ==
LOC: ER 14:00
PROVIDERS: Emergency Medicine
DX: E11.649 Type 2 diabetes mellitus with hypoglycemia without coma (principal); K21.9 Gastro-esophageal reflux disease without esophagitis; I10 Essential (primary) hypertension; I48.91 Unspecified atrial fibrillation; E78.5 Hyperlipidemia, unspecified; Z90.49 Acquired absence of other specified parts of digestive tract; Z90.89 Acquired absence of other organs; Z79.4 Long term (current) use of insulin; Z79.899 Other long term (current) drug therapy; Z91.041 Radiographic dye allergy status

== ENCOUNTER 2021-07-19 09:28 | Emergency (ER) | payer OTHER ==
[~2021-07-19] VITALS: Ht 172.7 cm; Wt 68.0 kg
[2021-07-19] MEDS ORDERED: MACROBID 100 M100 M1 PO (12:09)
[2021-07-19 12:30] VITALS: BP 176/95
== END 2021-07-19 13:25 | disposition home or self-care (01) ==
LOC: ER 09:28 → EDBD 09:28 → ER 13:25
DX: T83.038A Leakage of other urinary catheter, initial encounter (principal); R33.9 Retention of urine, unspecified; I10 Essential (primary) hypertension; Z91.041 Radiographic dye allergy status; Z79.899 Other long term (current) drug therapy; Z79.4 Long term (current) use of insulin

== ENCOUNTER 2021-07-21 14:48 | Inpatient (IN) | payer OTHER ==
[~2021-07-21] VITALS: Ht 172.7 cm; Wt 62.1 kg
--- NOTE | ~2021-07-21 | O ---
[facility] [place] [address] OPERATIVE REPORT Name: SANG CARNEY Room #: 451-P ADM IN M.R.#: [id number] Admission: 07/21/21 Attend Phys: Price Macdonald MD Discharge: Date of : 38 Report #: [id number] THIS REPORT FOR: cc: Gerber Velazquez MD, Christopher B. MD Rizzi, Raymond M. DPM ~ DATE OF SERVICE: 07/24/2021 PREOPERATIVE DIAGNOSES: Bilateral diabetic foot ulcers with osteomyelitis. POSTOPERATIVE DIAGNOSES: Bilateral diabetic foot ulcers with osteomyelitis. PROCEDURE: Bilateral partial second ray resections. ANESTHESIA: General with a local block consisting of 10 mL of 0.5% Marcaine. TOURNIQUET: None. DESCRIPTION OF PROCEDURE: The patient was transferred to the operating room and placed on table in supine position. Bilateral lower extremities were prepped and draped in the usual sterile manner. Procedure #1, left partial second ray resection. Attention was directed to the left second digit where a racquet-type incision was made. Incision was carried down to bone and the second digit was excised completely and deep tissue from this toe was sent for aerobic, anaerobic and fungal. I dissected free the distal third of the metatarsal intraoperative sagittal saw. Particularly tension closure. It should be noted that during this dissection very minimal blood was noted. I removed the tendon and capsular tissue as well. I then closed the incision line with a combination of simple suture and horizontal suture technique and dressed with Xeroform, fluffs, Kerlix and an Mykel bandage loosely applied. Second procedure is as above, for the second digit, but with more bleeding. The patient's bilateral partial second ray resections because of osteomyelitis present. [facility] [address] [place] [address] OPERATIVE REPORT Name: SANG CARNEY Room #: 451-P ADM IN Suzanne#: [id number] Admission: 07/21/21 Attend Phys: Price Macdonald MD Discharge: Date of : 38 Report #: [id number] The angiogram will be done here in the next day or two. There is a possibility this will have not enough blood flow to heal. If it does, we will readdress the situation with possible transmet amputation or at a level that he wished that he will heal. By: 1518 1604 Clayton Ivy DPM /isidro
[~2021-07-21 14:48] MED LIST changes: +MACROBID 100 M100 M1 PO
[2021-07-21 14:57] VITALS: BP 149/71
[2021-07-21 16:22] LABS: ABSOLUTE NEUTROPHILS 3.3 thou/uL (1.4-8.2); BASOPHILS 0.8 % (0.0-2.0); EOSINOPHILS 18.3 % (0.0-3.0); HEMATOCRIT 34.2 % (42.0-52.0); HEMOGLOBIN 11.1 gm/dL (14.0-18.0); LYMPHOCYTES 22.2 % (24.0-44.0); MCH 26.5 pg (26.0-34.0); MCHC 32.6 g/dL (28.0-37.0); MCV 81.3 fL (80.0-100.0); PLATELET COUNT 175 thou/uL (150-400); POLYS 51.7 % (36.0-66.0); RDW 18.6 % (10.5-14.5); WBC 6.4 thou/uL (4.0-11.0)
[2021-07-21 17:08] LABS: ANISOCYTOSIS 2+
[2021-07-21 17:34] LABS: CALCIUM 8.8 mg/dL (8.5-10.1); CREATININE 1.6 mg/dL (0.7-1.3); POTASSIUM 3.8 mmol/L (3.5-5.1)
[2021-07-21 17:40] LABS: ALBUMIN 2.7 g/dL (3.4-5.0); TOTAL BILIRUBIN 0.4 mg/dL (0.2-1.0); TOTAL PROTEIN 7.5 g/dL (6.4-8.2)
[2021-07-22] MEDS ORDERED: THRIVITE RX TA1 EACH PO (00:42)
[2021-07-22] MEDS ORDERED: HUMALOG KW100 UNIT/1 SUBQ (00:53)
[2021-07-22 08:01] LABS: HEMATOCRIT 31.8 % (42.0-52.0); HEMOGLOBIN 10.1 gm/dL (14.0-18.0); MCH 25.7 pg (26.0-34.0); MCHC 31.8 g/dL (28.0-37.0); MCV 80.7 fL (80.0-100.0); RBC 3.94 mil/uL (4.50-6.00); RDW 18.5 % (10.5-14.5); WBC 5.2 thou/uL (4.0-11.0)
[2021-07-22 08:18] LABS: CALCIUM 8.6 mg/dL (8.5-10.1); CREATININE 1.6 mg/dL (0.7-1.3); POTASSIUM 3.8 mmol/L (3.5-5.1)
[2021-07-22 08:26] LABS: APTT 31.1 Seconds (24.5-32.8); INR 1.1; PROTIME 11.7 Seconds (9.3-11.4)
[2021-07-22 11:26] VITALS: BP 145/72
--- NOTE | 2021-07-22 13:58 | NUR ---
Pt STILL IN ED AWAITING BED. UNABLE TO EVAL Pt THIS DATE D/T SCHEDULE CONFLICT. WILL ATTEMPT TO EVAL TOMORROW AND HOPEFULLY THE Pt WILL BE ADMITTED TO A FLOOR
[2021-07-22 15:32] VITALS: BP 145/72
[2021-07-22 15:39] VITALS: BP 171/70
[2021-07-22 17:30] VITALS: BP 163/90
--- NOTE | 2021-07-22 18:01 | NUR ---
PT ARRIVED FROM ED AROUND 1640. ASSISTED PT TO COMMODE FOR BM, THEN SETTLED IN BED. PT IS EXTREMELY WEAK AND UNSTEADY D/T BILATERAL TOE WOUND THAT WAS PICTURED AND DOCUMENTED. ADMIT ASSESSMENT AND CHECKLIST COMPLETED. VITALS AND BLOOD SUGAR TAKEN, SCDS APPLIED. PT IS RESTING IN ROOM WATCHING TV. WILL UPDATE DISPOSAL MAN RN.
[2021-07-22 20:06] VITALS: BP 178/90
--- NOTE | 2021-07-23 03:20 | NUR ---
PROGRESS PT ALERT ORIENTED X 2 TO 3 BUT FORGETFUL AND IMPULSIVE. REPEATED ATTEMPTS TO GET OUT OF BED UNASSISTED SO MOVED CLOSER TO NURSES STATION. WOUNDS TO BILATERAL SECOND TOES FAMILY SERVICES MANAGER WITH DRIED BLOODY DRAINAGE PT DENIES PAIN, PEDAL PULSES WEAK. AMPICILLIN ADMINISTERED ORDERED. PT NPO PENDING CONSULTS WITH WOUND CARE AND DR.RIZZI ENRIQUE. FALL PRECAUTIONS IN PLACE, CONTINUE POC.
--- NOTE | 2021-07-23 15:13 | NUR ---
PT ADMITTED RELATED TO OSTEOMYELITIS BILAT TOES. CM REVIEWED CHART AND SPOKE WITH CARE TEAM. CM MET WITH PT AT BEDSIDE THIS DAY. PT APPEARED TO BE A&O X4 BUT TANGENTIAL. CM ROLE INTRODUCED. PT INDICATED HE LIVES IN A HOUSE ALONE WITH 2 STEPS TO ENTER AND NONE INSIDE. PT INDICATED HE USED A 4WW FOR USE AT HOME. HE INDICATED HE HAS CAREGIVER SERVICES 17/05 THAT ARE OVERSEEN BY TITA . SHE IS WITH IN HOME CARE SERVICES CM SPOKE WITH HER AND SHE INDICATED THAT PT HAD BEEN ABLE TRANSFER HIMSELF AND AMBULATE WITH HIS 4WW WITH [facility]. PT HAD BEEN ON SERVICE WITH [facility] PT, OT, AND NURSING SERVICES PRIEST. CM CALLED AND SPOKE WITH PT'S SON SIMA CARNEY HE CONFIRMED THE ABOVE. HE INDICATED THAT PT HAD BEEN AT [facility] AND THAT HE WOULD LIKE FOR PT TO GO TO REHAB AGAIN UPON DC. HE STATED THAT HE HAD SUBMITTED PAPERWORK FOR [facility] BENEF[facility] 07/11 BUT HADN'T HEARD ANYTHING. SON ISN'T CERTAIN THAT IT WOULD BE A GOOD IDEA FOR PT TO DC HOME. DOESN'T SEEM LIKE PT WOULD QUALIFY FOR MEDICAID SON INDICATED INCOME OVER $5,000 PER MONTH. PT MAY HAVE TOE AMPUTATION TODAY OR TOMORROW. PT WILL LIKELY NEED SNF STAY. SON WANTED REFERRAL SENT TO [facility]. CM TO FAX. CM FOLLOWING REGARDING DC PLANNING.
[2021-07-23 17:04] VITALS: BP 171/60
--- NOTE | 2021-07-23 18:25 | NUR ---
END SHIFT NOTE: pT REMAINED SAFE AND COMFORTABLE DURING THE SHIFT. VSS, AFEBRILE, NPO ALL DAY IN THE HOPE TO HAVE THE SURGERY DONE BUT STILL PENDING. LABS NOT CONCERNING. SEE IMAGING RESULT FOR USD OF LOWER EXTREMITY. CONT POC AND KEEP PATIENT READY FOR POSSIBLE SX SURGERY TOMORROW.
[2021-07-23 19:49] VITALS: BP 152/70
--- NOTE | 2021-07-24 04:47 | NUR ---
ASSUME CARE OF PT AT SHIFT CHANGE. PT IS AOX3-4 AND LETS NEEDS BE KNOWN. FALL RPECAUTION IN PLACE. SALGADO IN PLACE AND PATIENT. ABC TREATMENT CONTINUED. PT DENIED PAIN, NAUSEA OR SOA. ASSESSMENT CHARTED. PT ATE LATE DINNER AND WAS PLACED NPO AT [place] FOR PROCEDURE IN THE AM. PT WAS ABLE TO GET COMFORTABLE AND SLEEP PART OF THE SHIFT. VSS AND NO S/S OF ACUTE DISTRESS. WILL CONTINUE TO MONITOR FOR CHANGES.
[2021-07-24 08:00] VITALS: BP 154/70
--- NOTE | 2021-07-24 08:35 | NUR ---
RECEIVED OT EVALUATION ORDER. PER THE EMR, PLANS FOR AMPUTATION. WILL NEED POST-OP ORDERS.
--- NOTE | 2021-07-24 12:29 | NUR ---
CM HAD FAXED REFERRAL OVER TO [facility] PER SON'S REQUESTE. THEY RECEIVED IT AND INDICATED THAT THEY WOULD BE ABLE TO ACCEPT HIM FOR SHORT TERM SKILLED ONCE MEDICALLY STABLE. AWAITING IR EVAL AND THEN PROBABLE BL 2ND TOE AMPS. CM FOLLOWING REGARDING DC PLANNING.
--- NOTE | 2021-07-24 12:59 | NUR ---
Assumed ot care this am received NPO vs stable. Seen by Dr. Moore is scheduled procedure with him tomorrow. REceived a call fron pre op that Dr. Ivy will do the procedure today at 3 pm, maintained NPO.
[2021-07-24 14:47] LABS: HEMATOCRIT 31.1 % (42.0-52.0); HEMOGLOBIN 10.1 gm/dL (14.0-18.0); MCH 25.9 pg (26.0-34.0); MCHC 32.6 g/dL (28.0-37.0); MCV 79.6 fL (80.0-100.0); RBC 3.91 mil/uL (4.50-6.00); RDW 18.5 % (10.5-14.5); WBC 5.3 thou/uL (4.0-11.0)
[2021-07-24 14:57] LABS: CALCIUM 8.7 mg/dL (8.5-10.1); CREATININE 1.7 mg/dL (0.7-1.3); MAGNESIUM 1.8 mg/dL (1.8-2.4); POTASSIUM 4.2 mmol/L (3.5-5.1)
[2021-07-24 17:45] VITALS: BP 140/66
[2021-07-24 18:00] VITALS: BP 146/67
[2021-07-24 19:46] VITALS: BP 136/77
[2021-07-24 20:46] VITALS: BP 147/62
[2021-07-24 21:03] VITALS: BP 126/60
[2021-07-25] VITALS (13 sets, daily range): BP systolic 124–165; BP diastolic 63–96
[2021-07-25 05:52] LABS: HEMATOCRIT 30.7 % (42.0-52.0); HEMOGLOBIN 9.8 gm/dL (14.0-18.0); MCHC 32.1 g/dL (28.0-37.0); MCV 80.9 fL (80.0-100.0); RBC 3.79 mil/uL (4.50-6.00); RDW 18.3 % (10.5-14.5)
[2021-07-25 06:34] LABS: ALBUMIN 2.4 g/dL (3.4-5.0); CALCIUM 8.4 mg/dL (8.5-10.1); CREATININE 1.8 mg/dL (0.7-1.3); POTASSIUM 4.7 mmol/L (3.5-5.1); TOTAL BILIRUBIN 0.4 mg/dL (0.2-1.0); TOTAL PROTEIN 6.6 g/dL (6.4-8.2)
--- NOTE | 2021-07-25 07:00 | NUR ---
patient russell leaking around, this nurse tried to intervene but patient refused saying,<<dont touch my penis, my penis broke>>. pericare and barrier cream applied.both foot dressing are c/d/i. patient turned q [address] precaution in[address]. patient in denied pain or discomfort. patient in bed asleep at this time breathing regular and unlaboured.
--- NOTE | 2021-07-25 15:45 | NUR ---
Pt had right and left partial 2nd ray resections yesterday. Pt to have aortagram with crow this afternoon. Care team indicated that pt may trnasfer to 2n ccu post procedure. [facility] is able to accept pt for short term skilled rehab stay once medically stable. Should pt be dc ready over the weekend please contact Kavon at ( fax .
--- NOTE | 2021-07-25 18:47 | NUR ---
Received pt to room 206 from cath after LERO. Pt on 2L NC. Lt groin site C/D/I. Pt needs reinforcement with teaching. Bedrest until 194. A&O x3. Pt c/o no pain. Russell patent. Per report, russell will leak, however pt c/o penis pain. Penis is without redness or discharge. Urine from russell is yellow. Bilat toe amputations w/ dressings intact currently. Speech consulted as pt was coughing w/ dinner.
[2021-07-26 01:00] VITALS: BP 143/96
--- NOTE | 2021-07-26 04:27 | NUR ---
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 PT DENIES PAIN AND SOB WHILE INTERMITTENTLY USING 2L O2 VIA NC. PT TOLERATING PO INTAKE OF FLUIDS AND CARB CONTROLLED DIET WITHOUT INTERMITTENT ISSUE WITH THIN LIQUIDS WITH MEDICATIONS, ENCOURAGED CRUSHED MEDICATIONS. PT WITHOUT NAUSEA OR EMESIS. SALGADO CATHETER IN PLACE, NOT PATENT, LEAKING NOTED. PT REFUSING REMOVAL OF CATHETER DUE TO INCREASED ANXIETY AND INCREASED PAIN TO PENIS, REMAINS AWARE OF BLADDER NEEDS, REFUSING ANITHA CARE BY STAFF. PT RESTING IN BED THROUGHOUT SHIFT, FREQUENT REPOSITIONING ENCOURAGED. PT NOTED TO SHIFT INDEPENDENTLY WHILE IN BED. PT REPORTS NUMBNESS IN BLE, UNABLE TO ASSESS PEDAL PULSES, PULSES TO BUE PALPABLE. PT REQUESTING TO HAVE WOUND CARE TO BLE IN THE BATT MACHINE OPERATOR. PT ENCOURAGED TO NOTIFY STAFF FOR ALL NEEDS, CALL LIGHT WITHIN REACH, BED ALARM ON, BED LOCKED IN LOWEST POSITION, FREQUENT MONITORING WILL CONTINUE.
[2021-07-26 04:42] VITALS: BP 135/65
[2021-07-26 05:00] VITALS: BP 143/79
[2021-07-26 08:08] VITALS: BP 146/49
[2021-07-26 11:34] VITALS: BP 132/59
[2021-07-26 15:29] VITALS: BP 97/63
--- NOTE | 2021-07-26 17:09 | NUR ---
ASSESSMENT CHARTED - MEDS PER BIBI - KT DIET AND FLUIDS. ACCUCHECKS CHARTED COVERED FOR SSI. NO CO;S OF PAIN OR NAUSEA. PT SITS ON SIDE OF BED TO VOID. DRESSING TO FEET C/D/I. PT CONFUSED AT TIMES - DEMENTIA HAS BEEN FAIRLY PLEASEANT FOR MOST OG THE SHIFT - CAN GET VERBALLY AGGRESIVE. SEEN BY SPEECH THERAPY - PT ABLE TO EAT REG DIET AND THIN LIQUIDS. NO CO'S AT THE PRESENT TIME
[2021-07-27 05:07] VITALS: BP 154/75
[2021-07-27 08:01] VITALS: BP 158/67
--- NOTE | 2021-07-27 08:39 | NUR ---
PT LYING IN BED. DENIES PAIN. RESTING COMFORTABLY. NO NEEDS VOICED. CALL LIGHT WITHIN REACH. FREQUENT OBSERVATION.
[2021-07-27 11:17] VITALS: BP 151/67
[2021-07-27 16:37] VITALS: BP 155/76
--- NOTE | 2021-07-27 19:12 | NUR ---
ASSESSMENT KT. MEDS PER MAR - ACCUCHECKS COVERED PER SSI. NO CO'S OF PAIN OR NAUSEA. KT DIET AND FLUIDS. DRESSING TO FEET BILAT COMPLETED - XEROFORM GAUZE AND KERLIX APPLIED ORDERED. INCISIONS TO SECOND TOE AREA ON EACH FOOT C/D/I. PT SITS ON SIDE OF BED TO VOID AROUND CATH. CATH ALSO COLLECTS URINE. NO CO'S AT THE PRESENT TIME.
[2021-07-27 19:54] VITALS: BP 171/64
[2021-07-27 22:10] VITALS: BP 179/93; BP 183/95
[2021-07-28] VITALS (12 sets, daily range): BP systolic 115–158; BP diastolic 59–84
--- NOTE | 2021-07-28 03:54 | NUR ---
SLEPT PART OF SHIFT. TURNS SELF. HAD LARGE BOWEL MOVEMENT THIS SHIFT. WORKING ON GOALS AND PLAN OF CARE FOR NOC. DENIES COMPLAINTS OF PAIN THIS SHIFT. MONITOR VS AND GIVE MEDICATIONS NEEDED. CONTINUE TO ASSES CLOSELY.
--- NOTE | 2021-07-28 14:18 | NUR ---
THIS RN PHONED DR. CELIS TO VERIFY WEIGHT BEARING STATUS. PATIENT TO HAVE NO WEIGHT BEARING LIMITATIONS PER MD.
--- NOTE | 2021-07-28 14:52 | NUR ---
Patient transferred to CCU from [facility]. patient with bilateral amputation. Updated [facility]. Plan return to [facility] once stable.
--- NOTE | 2021-07-28 17:33 | NUR ---
[facility]. Sp with patient who reports he does not want to return to [facility] for post acute care. Sp with son who questioned options. discussed other post acute care facilities. Emailed son the list of facilites for review. Gave patient a list to review. [email or web address] following.
--- NOTE | 2021-07-28 17:43 | NUR ---
URINARY CATHETER REMOVED AT 1705.
[2021-07-29 04:17] VITALS: BP 124/64
[2021-07-29 04:53] LABS: HEMATOCRIT 30.7 % (42.0-52.0); MCH 26.4 pg (26.0-34.0); MCHC 32.6 g/dL (28.0-37.0); MCV 80.9 fL (80.0-100.0); RBC 3.79 mil/uL (4.50-6.00); RDW 19.4 % (10.5-14.5); WBC 7.4 thou/uL (4.0-11.0)
[2021-07-29 05:02] LABS: CALCIUM 8.6 mg/dL (8.5-10.1); CREATININE 1.9 mg/dL (0.7-1.3); POTASSIUM 4.6 mmol/L (3.5-5.1)
--- NOTE | 2021-07-29 07:50 | NUR ---
ASSUMED CARE OF PT AROUND 1900HRS. PT IS AOX3 AND LETS NEEDS BE KNOWN. FALL PRECAUTION IN PLACE. PT DENIED PAIN AND NAUSEA. 2L 02 VIA NC CONTINUED. ABX TREATMENT CONTINUED. MYNX DRESSING C/D/I IN BI GROIN. PT VOIDING WITHOUT SALGADO 50-100CC AT A TIME. PT WAS ABLE TO GET COMFORTABLE AND SLEEP PART OF THE SHIFT VSS AND NO S/S OF ACUTE DISTRESS. REPORT GIVEN TO NATALIE MONTGOMERY.
[2021-07-29 08:30] VITALS: BP 156/56
--- NOTE | 2021-07-29 09:29 | NUR ---
PRE-VOID BLADDER SCAN THIS MORNING SHOWED >221ML IN BLADDER. PATIENT VOIDED 125ML CLEAR, YELLOW URINE POST-SCAN.
[2021-07-29 11:30] VITALS: BP 168/74
[2021-07-29 15:30] VITALS: BP 148/76
--- NOTE | 2021-07-29 18:51 | NUR ---
Physical therapy/occupational therapy reordered and evaled patient today. PT reports patient may return home if cont 17/05 care. Sp with son who reports they want to cont to pursue skilled care. Son reports inquiring into assisted living in near future. Patient reports wants skilled rehab in [place] to be closer to son and ex-. Reviewed skilled list with patient who reports interest in [facility] for skilled care. Faxed referrals for review.
[2021-07-29 21:25] VITALS: BP 162/66
[2021-07-30 04:16] VITALS: BP 146/60
--- NOTE | 2021-07-30 06:00 | NUR ---
Assumed care of the patient at 0100. He rested quietly during the night when checked on during frequent rounds. Pt. offers no c/o pain. Dressings to bilateral lower legs are dry and intact. Bed alarm is on.
[2021-07-30 08:16] VITALS: BP 166/84
--- NOTE | 2021-07-30 10:08 | PATH ---
[facility] [place] [address] PATHOLOGY RPT PROCEDURE Name: SANG CARNEY Room #: 206-P ADM IN M.R.#: [id number] Admission: 07/21/21 Date of : 36 Discharge: Report #: [id number] Path Case #: [id number] LCA Accession Number: [id number] . 01 Material submitted: . PART A: toe - LEFT PARTIAL SECOND RAY RESECTION. Modifiers: left, second, RAY PART B: toe - RIGHT PARTIAL SECOND RAY RESECTION. Modifiers: right, second, RAY . 01 Clinical history: . AMPUTATION OF TOES OSTEOMYLITIS IN FOOT . 02 Diagnosis: A. "Left partial second ray resection": - Skin with ulceration and marked acute inflammation extending down into the dermis and the underlying bone with osteomyelitis and osteonecrosis. - Resection margins appear viable. . B. "Right partial second ray resection": - Ulcerated skin extending into the dermis and the bone with osteomyelitis and osteonecrosis. - Resection margins appear viable. (SCA/db; 07/28/2021) LBQ 07/28/2021 1055 Local . 02 Electronically signed: . Sudeep Bella DO, Pathologist NPI- [id number] . 01 Gross description: . A. The specimen is received in formalin, labeled "Sang Carney, left partial second resection". It consists of a distal toe resection measuring 5.3 cm 1 x 1.8 cm in diameter. The skin and soft tissue at the resection margin (inked black) appears grossly viable. Identified at the resection surface is a bony segment displaying a smooth grossly unremarkable articular surface. Identified on the dorsal aspect of the toe is a brown-hull ulcerated lesion measuring 1.5 x 1.5 cm. The lesion measures 1.4 cm from the skin and soft tissue margin. Identified on the ventral aspect of the toe is a hull-red, ulcerated lesion measuring 0.5 x 0.4 cm. The lesion measures 0.2 cm from the skin and soft tissue margin. The remaining epidermal surface appears gillespie and focally sloughed. A gillespie unremarkable nail is present. Also identified within the specimen container are 2 gillespie, irregular bony and soft tissue fragments measuring 1.5 and 1.7 cm. The larger fragment displays a smooth articular surface and a smooth resection surface. Network Desktop Support Specialist [place] [address] PATHOLOGY RPT PROCEDURE Name: SANG CARNEY Room #: 206-P ADM IN M.R.#: [id number] Admission: 07/21/21 Date of : 36 Discharge: Report #: [id number] Path Case #: [id number] follows: A1-A3: Longitudinal cross-section of toe, submitted from proximal to distal, following decalcification A4: Network Desktop Support Specialist longitudinal cross-section of additional bone fragment, following decalcification . B. The specimen is received in formalin, labeled "Sang Carney P, right partial second ray resection". It consists of a distal toe resection measuring 5.4 cm long by 1.8 cm in diameter. The skin and soft tissue at the margin (inked black) appears grossly viable. Identified at the resection surface is a bony segment displaying a smooth grossly unremarkable resection surface. Identified on the dorsal surface of the toe is a hull-green, ulcerated lesion measuring 2.0 x 1.6 cm. The lesion measures 0.5 cm from the skin and soft tissue margin. Identified on the ventral aspect of the toe is a hull-red flat lesion measuring 1.0 x 0.5 cm. The lesion measures 0.4 cm from the margin. The remaining epidermal surface appears gillespie, wrinkled and hairbearing. A gillespie-white, hemorrhagic, soft nail is present. Also identified within the specimen container is a gillespie segment of bone with adherent soft tissue measuring 2.1 cm long by 1.0 cm in diameter. The segment displays a smooth, grossly unremarkable articular surface and a smooth resection surface. Network Desktop Support Specialist sections are submitted as follows: B1-B3: Longitudinal cross-section of toe, submitted from proximal to distal, following decalcification B4: Network Desktop Support Specialist longitudinal cross-section of additional bone fragment, following decalcification (MRF; 07/25/2021) MFE/MFE 07/25/2021 1650 Local . 02 Pathologist provided ICD-10: M86.8X7, M87.872, M87.871 . 02 CPT . 080999, 884319, 114203, 094183 Specimen Comment: A courtesy copy of this report has been sent to [phone], [phone]- Specimen Comment: [phone], Specimen Comment: Report sent to , DR DENSON / DR CROW Specimen Comment: A duplicate report has been generated due to demographic updates. Performed at: 01 [facility] [address] [id number] MD Rayshawn Raygoza MD Phone: [phone] Performed at: 02 [facility] [address] [id number] MD Julio Cesar Marvin MD Phone: [phone]
[2021-07-30 11:52] LABS: HEMATOCRIT 33.3 % (42.0-52.0); HEMOGLOBIN 10.8 gm/dL (14.0-18.0); MCH 26.4 pg (26.0-34.0); MCHC 32.3 g/dL (28.0-37.0); MCV 81.5 fL (80.0-100.0); RBC 4.09 mil/uL (4.50-6.00); RDW 19.5 % (10.5-14.5); WBC 7.6 thou/uL (4.0-11.0)
[2021-07-30 11:57] LABS: CALCIUM 8.5 mg/dL (8.5-10.1); CREATININE 1.8 mg/dL (0.7-1.3); MAGNESIUM 1.9 mg/dL (1.8-2.4); POTASSIUM 4.2 mmol/L (3.5-5.1)
--- NOTE | 2021-07-30 11:57 | NUR ---
Spoke with son alerted of inquiring into skilled facilities in [place]. Sp with [facility] who reports no beds avail. Sp with [facility] who rec referral and in process of review.
--- NOTE | 2021-07-30 12:05 | NUR ---
PT OFF FLOOR FOR PROCEDURE
[2021-07-30 16:00] VITALS: BP 167/83
[2021-07-30 19:37] VITALS: BP 137/60
--- NOTE | 2021-07-30 20:23 | NUR ---
PT WAS SEEN BY [facility] TODAY. ORDERS OBTAINED BY THEM FOR PICC LINE AND ADDITIONAL ANTIBIOTICS. PT HAD 2 IV SITES THE LEFT FOREARM SITE DID NOT FLOW AND WAS DC'ED, THE RIGHT SITE WAS ACCIDENTALY REMOVED BY THE PT, PICC NURSE STATED SHE WAS UNABLE TO GET TO THE PT UNTIL TOMORROW SO A IV WAS PLACED IN THE RIGHT HAND. DECENT URINARY OUTPUT.
[2021-07-31 04:23] VITALS: BP 152/84
--- NOTE | 2021-07-31 07:24 | NUR ---
SLEPT PART OF SHIFT. DENIES COMPLAINTS. DANGLES SELF. WORKING ON GOALS AND PLAN OF CARE FOR NOC. CONTINUE TO ASSES.
[2021-07-31 07:52] VITALS: BP 142/62
--- NOTE | 2021-07-31 11:26 | HC ---
[facility] [place] [address] CONSULTATION Name: SANG CARNEY Room #: 206-P ADM IN M.R.#: [id number] Admission: 07/21/21 Attend Phys: Price Macdonald MD Discharge: Date of : 38 Report #: [id number] THIS REPORT FOR: cc: Gerber Velazquez MD, Christopher B. MD Barry, Joseph W. MD ~ DATE OF SERVICE: 07/30/2021 INFECTIOUS DISEASE CONSULTATION ATTENDING PHYSICIAN: Dr. Macdonald. REASON FOR EVALUATION: Bilateral toe osteomyelitis. HISTORY OF PRESENT SUBJECTIVE: Chart reviewed. The patient examined. This is an 81-year-old gentleman known to myself with known severe vasculopathy, chronic wounds involving the bilateral second toes. Due to worsening signs and symptoms, lack of progress in healing, he was admitted to the hospital, underwent a more definitive treatment, had bilateral partial second ray resections, confirmed by pathology to be osteomyelitis, did have polymicrobial growth noted on bone culture including MRSA, corynebacterium, Eischerichia coli, latter which was moderately resistant. He did undergo vascular evaluation and was found to have severe vasculopathy bilaterally including high-grade stenosis within the distal right SFA, distal posterior tibial artery, right anterior tibial artery throughout its course. Also, left high-grade stenosis of the distal SFA, left posterior tibial artery throughout its course. He has been receiving therapy with Unasyn. Clinically, he is stable and he denies significant amount of pain at the operative site, not complaining of any systemic illness, no fevers or chills. Appetite has been satisfactory and this was confirmed by the nursing staff. He is scheduled to undergo wound care as well as rehabilitation. ALLERGIES: LISTED TO CONTRAST DYE. CURRENT MEDICATIONS: Include ____, metoprolol, finasteride, clopidogrel, aspirin, atorvastatin, Unasyn. 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 SOCIAL HISTORY: Nonsmoker, no ethanol, no illicit drug use. FAMILY HISTORY: Noncontributory. [facility] [address] [place] [address] CONSULTATION Name: SANG CARNEY Room #: 206-P [facility] IN .R.#: [id number] Admission: 07/21/21 Attend Phys: Price Macdonald MD Discharge: Date of : 38 Report #: [id number] REVIEW OF SYSTEMS: Otherwise unremarkable 10-point review of systems. PHYSICAL EXAMINATION: GENERAL: Appears chronically ill and undernourished. He is pleasant, cooperative, in mild distress. He is mildly encephalopathic. VITAL SIGNS: Temperature 97.3, pulse 57, respirations 18, blood pressure 166/84. SKIN: Warm, dry. No rashes. HEENT: Normocephalic. Extraocular muscles intact. NECK: Supple. LUNGS: Diminished breath sounds. HEART: Regular. There is a soft systolic murmur. ABDOMEN: Mildly distended, somewhat firm, nontender. EXTREMITIES: Bilateral lower extremity compressive dressings including the foot across the ankle as well. There is minimal amount of swelling. GENITOURINARY AND RECTAL: Deferred. LABORATORY DATA: CBC from today, white count is 7.6, H and H is 10.8 and 33.3, platelets 169. Electrolytes: Sodium 140, potassium 4.2, chloride 105, bicarbonate is 30, anion gap of 5, BUN and creatinine 42 and 1.8, glucose of 236. Cultures as described above. Pathology confirmed osteomyelitis involving both the right and left specimen, partial right and left second ray amputations. ASSESSMENT AND PLAN: Osteomyelitis involving bilateral toes. He is post amputation with ray resection, does have polymicrobial growth. We will adjust the antimicrobial therapy to cover the methicillin-resistant Staphylococcus aureus. We will need likely 2 agents at this point. We are going to be aggressive at this point given his severe vasculopathy and likelihood, if not healing, risk for additional infectious complications, certainly it is quite tenuous at this point. Add incentive spirometry. Optimize nutritional status. <ELECTRONICALLY SIGNED> By: Wong Sigala MD 07/31/21 1126 1330 [id number] Wong Sigala MD /nt
--- NOTE | 2021-07-31 11:56 | NUR ---
Both SNFs in [place], [place] have declined the pt. Pt notified and he would like to pursue snf at [facility]. Referral is being faxed but they are checking to see if they can manage his iv atb. Pt may be a candidate for LTAC. Case discussed with the care team and ID. Pt will need 6wks of iv vanco q12hrs and iv ceftrixone . He has 6 days at 206 and 1 at 120 and 3 at 110 in terms of rev codes. [facility] to review as well.
--- NOTE | 2021-07-31 13:50 | NUR ---
A #4F SINGLE LUMEN PICC WAS PLACED AFTER A BEDSIDE TIMEOUT OUT WAS COMPLETED PER HOSPITAL POLICY. THE LINE WAS TRIMMED TO 43CM AND ADVANCED WITHOUT DIFFICULTY. THE LINE WAS CONFIRMED USING SHERLOCK 3CG AND RELEASED FOR USE
[2021-07-31 17:07] VITALS: BP 158/98
--- NOTE | 2021-07-31 18:24 | NUR ---
OVERALL PT HAD A GOOD SHIFT. STILL WAITING ON PLACEMENT. PICC LINE WAS PLACED IN UPPER RIGHT ARM. PT CAUGHT THE LINE WHILE TRYING TO SIT ON SIDE OF BED AND PULLED THE LINE. IV TEAM WAS NOTIFIED AND STAT XRAY WAS ORDERED. VASCULAR ACCESS STATED LINE IS STILL GOOD AND USEABLE.
[2021-07-31 22:07] VITALS: BP 158/68
--- NOTE | 2021-07-31 23:11 | NUR ---
PT IS A/O X4 WITH SOME FORGETFULNESS. 2 LITERS NC. VSS AFEBRILE. SB ON THE MONTIOR. DRSG CHANGES COMPLETED TO BILAT FEET. C/D/I. LIT PICC LINE LEAKING. NEW DRSG APPLIED AND REINFORCED. ASSESSMENT IS CHARTED. PT TRANSFERING TO ROOM 440. REPORT GIVEN TO ONCOMING NURSE CONNOR.
[2021-07-31 23:36] VITALS: BP 169/78
--- NOTE | 2021-08-01 00:02 | NUR ---
PT TRANSFERRED FROM [facility] AT 2315. RESTING IN BED. PT STABLE NO FURTHER SIGNS OF DISCOMFORT. MONITORED ON TELE. URINAL BY BEDSIDE WILL CONT TO MONITOR.
[2021-08-01 04:24] VITALS: BP 160/86
[2021-08-01 04:30] LABS: ABSOLUTE NEUTROPHILS 4.1 thou/uL (1.4-8.2); BASOPHILS 0.7 % (0.0-2.0); EOSINOPHILS 7.1 % (0.0-3.0); HEMATOCRIT 29.6 % (42.0-52.0); HEMOGLOBIN 9.6 gm/dL (14.0-18.0); MCH 26.5 pg (26.0-34.0); MCHC 32.5 g/dL (28.0-37.0); MCV 81.5 fL (80.0-100.0); MONOCYTES 9.1 % (1.0-8.0); PLATELET COUNT 150 thou/uL (150-400); POLYS 64.1 % (36.0-66.0); RBC 3.63 mil/uL (4.50-6.00); RDW 19.7 % (10.5-14.5); WBC 6.3 thou/uL (4.0-11.0)
[2021-08-01 04:49] LABS: ALBUMIN 2.6 g/dL (3.4-5.0); CALCIUM 8.6 mg/dL (8.5-10.1); CREATININE 1.7 mg/dL (0.7-1.3); MAGNESIUM 1.9 mg/dL (1.8-2.4); PHOSPHORUS 3.7 mg/dL (2.5-4.9); POTASSIUM 4.5 mmol/L (3.5-5.1); TOTAL BILIRUBIN 0.3 mg/dL (0.2-1.0); TOTAL PROTEIN 6.6 g/dL (6.4-8.2)
[2021-08-01 08:26] VITALS: BP 162/82
[2021-08-01] MEDS ORDERED: LOW DOSE ASPIRI81 M1 PO (09:27)
[2021-08-01] MEDS ORDERED: MIRALAX17 GM PO (09:27)
[2021-08-01] MEDS ORDERED: NOVOLOG100 UNIT/1 SUBQ (09:27)
[2021-08-01] MEDS ORDERED: METOPROLOL SUCC25 M1 PO (09:27)
[2021-08-01] MEDS ORDERED: IRON325 PO (09:27)
[2021-08-01] MEDS ORDERED: ROCEPHIN 11 GM/1001 IV (09:31)
[2021-08-01] MEDS ORDERED: VANCOMYCIN500 MG/VIA IV ×2 (09:31→14:15)
[2021-08-01] MEDS ORDERED: CULTURELLE KID1 EAC1 PO (09:32)
--- NOTE | 2021-08-01 11:04 | NUR ---
ON-GOING ASSESSMENT: PT TRANSFERRED FROM 2N TO 4S. PLANS ARE FOR PATIENT TO DISCHARGE TODAY TO [facility]. CM SPOKE WITH JACLYN AT [facility] WHO CONFIRMS THEY CAN ACCEPT PT AND REQUEST PT BE DISCHARGED AT 1300. CM NOTIFIED ATTENDING. CM FAXED DISCHARGE ORDERS TO [facility] AND CONFIRMED THEY RECEIVED THEM. CM SPOKE WITH PATIENT TO NOTIFY HIM WELL HIS SON WHO IS AGREEABLE WITH THE DISCHARGE PLAN. CHART COPY WAS ORDERED AND CLINICAL SERVICES ASSISTANT WAS NOTIFIED. TRANSPORTATION WAS ARRANGED THROUGH [facility] FOR [id number] PICKUP TIME FRAME. BEDSIDE RN HAS THE NUMBER FOR REPORT. PT REPORTS NO FURTHER NEEDS FROM PRIOR TO DISCHARGE. CASE CLOSED.
[2021-08-01 11:48] VITALS: BP 158/76
--- NOTE | 2021-08-01 13:27 | HC ---
[facility] [place] [address] CONSULTATION Name: SANG CARNEY Room #: 440-P ADM IN M.R.#: [id number] Admission: 07/21/21 Attend Phys: Price Macdonald MD Discharge: Date of : 38 Report #: [id number] THIS REPORT FOR: cc: Gerber Velazquez MD, Christopher B. MD Stephens, Thad A. MD ~ DATE OF SERVICE: 07/23/2021 WOUND CARE CONSULTATION PERSONAL PHYSICIAN: Dr. Vincenzo Velazqeuz CHIEF COMPLAINT: Bilateral toe ulcers. HISTORY OF PRESENT ILLNESS: This is an 81-year-old white male who has been a patient of mine for several months, we have been following for chronic ulcerations on the dorsal aspect of bilateral second toes. The patient actually had a partial bony debridement of the right toe several weeks ago. This had been doing well. However, over the past week, the patient's caregiver had been in the hospital and the patient was not receiving any wound care and the patient presented yesterday to the clinic. Both toes were macerated, cellulitic with a large piece of bone coming out of both of the dorsal aspects of the toes. At that time, it was felt that the patient needed to be hospitalized for surgical evaluation and most likely amputation of bilateral second toes. The patient denies fevers or chills. The patient otherwise denies any other associated wounds. PAST MEDICAL HISTORY: Significant for diabetes mellitus, gastroesophageal reflux disease, legal blindness, peripheral arterial disease, status post percutaneous intervention in April of this year, hypertension, atrial fibrillation, aortic valve stenosis, hyperlipidemia, coronary artery disease. CURRENT MEDICATIONS: Multiple, I reviewed the patient's medication list. DRUG ALLERGIES: IV DYE. SOCIAL HISTORY: The patient does not smoke. Resides at home with a supervisor mixing. FAMILY HISTORY: Not pertinent to current medical condition. REVIEW OF SYSTEMS: CONSTITUTIONAL: The patient denies fevers or chills. NEUROLOGIC: The patient complains of mild generalized weakness, but no isolated weakness in arms or legs. EYES: The patient is legally blind. EARS, NOSE AND THROAT: No complaints. [facility] [address] [place] [address] CONSULTATION Name: SANG CARNEY Room #: 440-P [facility] IN M.R.#: [id number] Admission: 07/21/21 Attend Phys: Price Macdonald MD Discharge: Date of : 38 Report #: [id number] CARDIAC: The patient denies chest pain, palpitations, peripheral edema. RESPIRATORY: The patient denies shortness of breath, cough, wheezes. GASTROINTESTINAL: The patient denies nausea, vomiting, abdominal pain. GENITOURINARY: The patient denies urgency or frequency. MUSCULOSKELETAL: No complaints. SKIN: The patient has chronic ulcerations with exposed bone, bilateral second toes. PHYSICAL EXAMINATION: VITAL SIGNS: Temperature 36.6, pulse 81, respirations 15, BP 178/90. GENERAL: This is alert and oriented x2, person and place, but not time, elderly white male who is chronically ill appearing. HEENT: Normocephalic, atraumatic. Mucous membranes are somewhat dry. Pupils are round. NECK: Without JVD. LUNGS: Clear. HEART: Regular. ABDOMEN: Soft, nontender. EXTREMITIES: The patient moves all extremities without difficulty. Dorsalis pedis pulses are 1+, bilateral heels are intact. Evaluation of dorsal aspect of bilateral second toes reveals chronic ulcers, which are covered with dry eschar. There is exposed bone palpable in both of the ulcerations. There is mild increased erythema and warmth to the toes themselves, but no extension down into the foot. NEUROLOGIC: Cranial nerves 2-12 grossly intact. Motor and sensory grossly intact. LABORATORY DATA: White count 5.2, hemoglobin 10.1. Sed rate 34, BUN 29, creatinine 1.6. Most recent hemoglobin A1c was 7.3, albumin 2.7. IMPRESSION: 1. Chronic ulcerations, bilateral second toes, dorsal aspect of the exposed bone consistent with osteomyelitis and cellulitis. 2. Diabetes mellitus. 3. History of peripheral arterial disease, status post intervention on the left leg. 4. Protein-calorie malnutrition, moderate with an albumin of 2.7. 5. Generalized debility. 6. Legal blindness. PLAN: At this time, Betadine and dry gauze was then placed over both the toes. Dr. Ivy consulted for podiatry evaluation of possible amputation of both second toes. We will order arterial Dopplers to evaluate for patency of the left lower extremity stents as well as need for any intervention on the right leg. [address] [address] CONSULTATION Name: SANG CARNEY Room #: 440-P ADM IN M.R.#: [id number] Admission: 07/21/21 Attend Phys: Price Macdonald MD Discharge: Date of : 38 Report #: [id number] Initially, we maximized the patient's oral protein supplementation for healing. We will utilize physical and occupational therapy for strengthening. We will continue all other current medications. Appreciate ability to consult. <ELECTRONICALLY SIGNED> By: Aldo Weathers MD 08/01/21 1327 1025 Aldo Weathers MD /nt
[2021-08-01] MEDS ORDERED: ELIQUIS5 MG PO (14:17)
== END 2021-08-01 13:53 | DRG 853 ==
LOC: ER 14:48 → 4W 18:16 → EROBS 18:16 → 4W 07-22 15:39 → 2N 07-25 17:08 → 4S 07-31 23:36
PROVIDERS: Internal Medicine; Nurse Practitioner; Podiatrist Foot & Ankle Surgery; ADMIT Internal Medicine; ATTEND Internal Medicine
PROC: 0Y6N0ZB Detachment at Left Foot, Partial 2nd Ray, Open Approach (ICD-10-PCS; 2021-07-24)
PROC: 0Y6M0ZB Detachment at Right Foot, Partial 2nd Ray, Open Approach (ICD-10-PCS; 2021-07-24)
PROC: 047T34Z Dilation of Right Peroneal Artery with Drug-eluting Intraluminal Device, Percutaneous Approach (ICD-10-PCS; principal; 2021-07-25)
PROC: B4181ZZ Fluoroscopy of Bilateral Renal Arteries using Low Osmolar Contrast (ICD-10-PCS; principal; 2021-07-25)
PROC: B41D1ZZ Fluoroscopy of Aorta and Bilateral Lower Extremity Arteries using Low Osmolar Contrast (ICD-10-PCS; principal; 2021-07-25)
PROC: 04CT3ZZ Extirpation of Matter from Right Peroneal Artery, Percutaneous Approach (ICD-10-PCS; principal; 2021-07-25)
PROC: 047U34Z Dilation of Left Peroneal Artery with Drug-eluting Intraluminal Device, Percutaneous Approach (ICD-10-PCS; 2021-07-28)
PROC: 04CN3ZZ Extirpation of Matter from Left Popliteal Artery, Percutaneous Approach (ICD-10-PCS; 2021-07-28)
PROC: 047N34Z Dilation of Left Popliteal Artery with Drug-eluting Intraluminal Device, Percutaneous Approach (ICD-10-PCS; 2021-07-28)
PROC: 04CU3ZZ Extirpation of Matter from Left Peroneal Artery, Percutaneous Approach (ICD-10-PCS; 2021-07-28)
DX: A41.9 Sepsis, unspecified organism (principal); E43 Unspecified severe protein-calorie malnutrition; N17.0 Acute kidney failure with tubular necrosis; M86.072 Acute hematogenous osteomyelitis, left ankle and foot; M86.071 Acute hematogenous osteomyelitis, right ankle and foot; I48.21 Permanent atrial fibrillation; N13.30 Unspecified hydronephrosis; M31.9 Necrotizing vasculopathy, unspecified; L98.499 Non-pressure chronic ulcer of skin of other sites with unspecified severity; N18.30 Chronic kidney disease, stage 3 unspecified; G47.33 Obstructive sleep apnea (adult) (pediatric); Z20.822 Contact with and (suspected) exposure to COVID-19; K21.9 Gastro-esophageal reflux disease without esophagitis; E78.5 Hyperlipidemia, unspecified; E11.51 Type 2 diabetes mellitus with diabetic peripheral angiopathy without gangrene; E11.69 Type 2 diabetes mellitus with other specified complication; I25.10 Atherosclerotic heart disease of native coronary artery without angina pectoris; E11.22 Type 2 diabetes mellitus with diabetic chronic kidney disease; R53.81 Other malaise; I12.9 Hypertensive chronic kidney disease with stage 1 through stage 4 chronic kidney disease, or unspecified chronic kidney disease; I35.0 Nonrheumatic aortic (valve) stenosis; T50.8X5A Adverse effect of diagnostic agents, initial encounter; E11.621 Type 2 diabetes mellitus with foot ulcer; Z79.82 Long term (current) use of aspirin; Z79.899 Other long term (current) drug therapy; Z98.49 Cataract extraction status, unspecified eye; Z91.041 Radiographic dye allergy status; Z87.891 Personal history of nicotine dependence; Z86.73 Personal history of transient ischemic attack (TIA), and cerebral infarction without residual deficits; Y92.89 Other specified places as the place of occurrence of the external cause
CPT/HCPCS: 10047; 10081; 10100; 27000; 50101; 50386; 50951; 56525; 57091; 62110; 62900; 70005

== ENCOUNTER 2021-10-22 13:26 | Inpatient (IN) | payer OTHER ==
[~2021-10-22] VITALS: Ht 172.7 cm; Wt 72.6 kg
--- NOTE | ~2021-10-22 | EMS ---
[address] [address] EMS Patient Care Report Name: SANG CARNEY Room #: 170-18 ADM IN M.R.#: [id number] Admission: 10/22/21 Attend Phys: Guillermo Kirk MD Discharge: Date of : 38 Report #: [id number] THIS REPORT FOR: //name// Report Transmitted: 10/23/2021 09:50 EMS Care Summary [place], [place]/[facility] Incident [id number] @ 10/22/2021 11:53 Incident Location [address] [place] [address] Patient SANG CARNEY Male, 81 Years 1940 Patient Address Patient History Diabetes, Patient Allergies No known allergies, Patient Medications Insulin, Chief Complaint UNABLE TO CARE FOR HIMSELF Disposition Transported No Lights/[place] Dispatch Reason Sick Person Transported To [facility] Narrative UPON ARRIVAL FOUND OUR 81 YEAR OLD MALE PATIENT SITTING ON THE COUCH IN THE FRONT ROOM OF A RESIDENCE WITH A [facility] NURSE NAMED MIKAEL BY HIS SIDE. THE PATIENT IS A&OX3-GCS 15 AND HE DENIES ANY MEDICAL COMPLAINTS. HOWEVER, MIKAEL STATES SHE WAS SENT TO ASSESS AND ADMIT THE PATIENT TO HOME HEALTH AND SHE DOES NOT BELIEVE IT IS SAFE FOR THE PATIENT TO BE AT HOME ALONE BECAUSE HE IS UNABLE TO MANAGE HIS MEDS OR FOLLOW HIS DIABETES TX PLAN. I [address] [address] EMS Patient Care Report Name: SANG CARNEY Room #: 170-18 ADM IN .R.#: [id number] Admission: 10/22/21 Attend Phys: Guillermo Kirk MD Discharge: Date of : 38 Report #: [id number] ATTEMPTED TO CONTACT THE PATIENT'S SON, BUT HE DID NOT ANSWER THE PHONE. THE PATIENT AGREED TO BE TRANSPORTED BACK TO [facility] FOR A PAN SHOVER CONSULT. Initial Vitals @13:13P: 80,R: 16,BP: 146/78,Pain: 0/10,GCS: 15,SpO2: 98,Revised Trauma: 12, @13:21P: 76,R: 18,BP: 144/76,GCS: 15,SpO2: 98,Revised Trauma: 12, Assessments @12:03MENTAL:Person Oriented,Time Oriented,Place Oriented,Event Oriented,SKIN:HEENT:Eyes: Right Pupil: 4-mm,Eyes: Left Pupil: 4-mm,Head/Face: No Abnormalities,Neck/Airway: No Abnormalities,LUNG SOUNDS:General: No Abnormalities,ABDOMEN:General: No Abnormalities,PELVIS//GI:No Abnormalities,EXTREMITIES:Right Leg: Other,Left Leg: Other,Left Arm: No Abnormalities,Right Arm: No Abnormalities,PULSE:Radial: 2+ Normal,NEURO: Impression Acute Pain, not elsewhere classified Procedures @12:03 ALS Assessment Response: UnchangedSucceeded Timeline 11:51,Call Received 11:51,Dispatch Notified 11:53,Dispatched 11:54,En Route 12:01,On Scene 12:03,At Patient 12:03,ALS Assessment,Response: UnchangedSucceeded, 13:13,BP: 146/78 M,PULSE: 80,RR: 16 R,SPO2: 98 Ox,ETCO2: ,BG: ,PAIN: 0,GCS: 15, 13:14,Depart Scene 13:20,At Destination 13:21,BP: 144/76 M,PULSE: 76,RR: 18 R,SPO2: 98 Ox,ETCO2: ,BG: ,PAIN: ,GCS: 15, 13:38,Call Closed Disclaimer v1.1 Copyright 2020 [employer] This EMS Care Summary contains data elements from the applicable legal record (which may be displayed differently). It is designed to provide pertinent information for the following purposes: continuity of care, clinical quality, and state data reporting. The complete legal record is available to ED staff and administrators of the receiving hospital in [employer] Patient Tracker. All data is provided "as is."
[~2021-10-22 13:26] MED LIST changes: +CULTURELLE KID1 EAC1 PO; +HUMALOG KW100 UNIT/1 SUBQ; +IRON325 PO; +LOW DOSE ASPIRI81 M1 PO; +METOPROLOL SUCC25 M1 PO; +NOVOLOG100 UNIT/1 SUBQ; +ROCEPHIN 11 GM/1001 IV; +THRIVITE RX TA1 EACH PO; +VANCOMYCIN500 MG/VIA IV
[2021-10-22 13:27] VITALS: BP 143/69
--- NOTE | 2021-10-22 15:51 | NUR ---
CM SPOKE WITH KELLY EASTMAN THIS DAY. SHE INDICATED THAT PT HAD BEEN BROUGHT IN BY EMS FROM HOME HAVING DISCHARGED HOME FROM [facility] YESERDAY. PT HAD BEEN HERE IN JULY 2021. CM REVIEWED PAST RECORD. CM CALLED PT'S SON SIMA AT THE TWO NUMBERS LISTED HOME AND CELL . CM CALLED AND LEFT A VM WITH COTTON GINNER HELPER AT [facility] AND HASN'T HEARD BACK OF THIS NOTE. CM CALLED [facility] [place] PT HAD BEEN ON SERVICE WITH THEM IN THE PAST AND THEY HAD INFACT GONE OUT TO SEE PT THIS AM AND HAD SENT HIM HERE THEY REPORTED PT HAD BEEN IN THE HOME SETTING ALONE WITH NO MEDS, UNAWARE OF HOW TO MANAGE HIS BS, AND NOT KNOWING HOW TO PREPARE HIMSELF FOOD. THEY INDICATED THEY WOULDN'T BE ABLE TO ACCEPT PT BACK ONTO SERVICES UPON DC. PT HAD 24/ [facility] WITH [facility] IN PAST CM CALLED HERE AND SHE INDICATED THAT LAST SHE HEARD PT HAD BEEN IN A FACILITY AND WAS GOING TO STAY THERE NOT ABLE TO PAY FOR THEIR SERVICES ANY LONGER. HARMAN INDICATED TO EDKELLY THAT AT THIS TIME WE CAN'T SAFELY DC TO HOME TO HOME SETTING WITH HOME HEALTH AND MEDS WITHOUT HAVING SPOKEN WITH ANYONE ELSE. PT TO BE ADMITTED CM FOLLOWING.
[2021-10-22 16:17] LABS: HEMATOCRIT 33.7 % (42.0-52.0); HEMOGLOBIN 10.7 gm/dL (14.0-18.0); MCH 25.7 pg (26.0-34.0); MCHC 31.9 g/dL (28.0-37.0); MCV 80.6 fL (80.0-100.0); RBC 4.18 mil/uL (4.50-6.00); RDW 18.3 % (10.5-14.5); WBC 5.4 thou/uL (4.0-11.0)
[2021-10-22 16:23] LABS: URINE BILIRUBIN NEGATIVE (Negative); URINE BLOOD 3+ (Negative); URINE CLARITY CLEAR; URINE COLOR YELLOW; URINE GLUCOSE-RANDOM* TRACE (Negative); URINE KETONES NEGATIVE (Negative); URINE LEUKOCYTES-REFLEX NEGATIVE (Negative); URINE NITRITE-REFLEX NEGATIVE (Negative); URINE PROTEIN (DIPSTICK) 2+ (Negative); URINE UROBILINOGEN 0.2 E.U./dl (0.2-1.0)
[2021-10-22 16:31] LABS: CASTS None Seen /LPF (None Seen); SQUAMOUS 0-3 Few /LPF (0-3); URINE RBC >20 Many /HPF (NONE SEEN); URINE WBC-REFLEX 0-5 Rare /HPF (0-5)
[2021-10-22 16:32] LABS: BACTERIA-REFLEX None Seen /HPF (None Seen); CRYSTALS None Seen /LPF (None Seen)
[2021-10-22 16:34] LABS: POTASSIUM 4.8 mmol/L (3.5-5.1)
[2021-10-22 16:38] LABS: ALBUMIN 2.9 g/dL (3.4-5.0); TOTAL BILIRUBIN 0.4 mg/dL (0.2-1.0); TOTAL PROTEIN 7.5 g/dL (6.4-8.2)
[2021-10-22 20:00] VITALS: BP 140/72
[2021-10-23 08:08] LABS: ABSOLUTE NEUTROPHILS 2.6 thou/uL (1.4-8.2); BASOPHILS 1.2 % (0.0-2.0); HEMATOCRIT 33.8 % (42.0-52.0); HEMOGLOBIN 10.8 gm/dL (14.0-18.0); LYMPHOCYTES 27.3 % (24.0-44.0); MCH 25.5 pg (26.0-34.0); MCHC 31.9 g/dL (28.0-37.0); MONOCYTES 8.4 % (1.0-8.0); PLATELET COUNT 194 thou/uL (150-400); POLYS 55.1 % (36.0-66.0); RBC 4.23 mil/uL (4.50-6.00); WBC 4.6 thou/uL (4.0-11.0)
--- NOTE | 2021-10-23 08:21 | NUR ---
UNABLE TO PULL PATIENT MEDICATIONS AT THIS TIME. PHARMACY AWARE.
[2021-10-23 08:26] LABS: CREATININE 1.8 mg/dL (0.7-1.3); MAGNESIUM 1.9 mg/dL (1.8-2.4); POTASSIUM 4.1 mmol/L (3.5-5.1)
[2021-10-23 10:54] VITALS: BP 187/88
--- NOTE | 2021-10-23 16:14 | NUR ---
REPORT GIVEN TO 4TH FLOOR RN AND PT TRANSFERED TO ROOM 443.
[2021-10-23 20:25] VITALS: BP 196/80
--- NOTE | 2021-10-24 06:19 | NUR ---
ASSUMED CARE AT 1900, PT COMFORATBLE, LAYING IN BED, USES URINAL FOR ELIMINATION, COMPLIANT TO TX, NO ADVERSE REACTION NOTED, SLEPT THROUGH THE NIGHT WILL CONTINUE TO MONITOR.
[2021-10-24 07:11] VITALS: BP 186/84
--- NOTE | 2021-10-24 08:22 | HC ---
[facility] [place] [address] CONSULTATION Name: SANG CARNEY Room #: 443-P ADM IN M.R.#: [id number] Admission: 10/22/21 Attend Phys: Guillermo Kirk MD Discharge: Date of : 38 Report #: [id number] THIS REPORT FOR: cc: Gerber Velazquez MD, Christopher B. MD Althoff,Moe Telles MD ~ DATE OF SERVICE: 10/23/2021 CHIEF COMPLAINT: Bilateral foot wounds. HISTORY OF PRESENT ILLNESS: This is an 81-year-old white male patient with whom I am familiar from hospitalization earlier this fall. He is a fairly poor historian and has been admitted to the hospital with generalized weakness and inability to care for himself. He had ulcerations to his bilateral second toes and underwent surgical amputation, partial ray resection of the second toes of both feet on 07/24/2021. He has still has a few areas that have not entirely healed and I have been asked to see him with regard to wound care. He is in good spirits. He denies significant pain at this time. PAST MEDICAL HISTORY: Positive for history of diabetes mellitus, gastroesophageal reflux disease, he is legally blind, peripheral arterial disease, hypertension, atrial fibrillation, coronary artery disease, aortic valve stenosis, hyperlipidemia, Long's esophagus. SOCIAL HISTORY: Negative for alcohol or tobacco use. FAMILY HISTORY: Noncontributory. REVIEW OF SYSTEMS: CONSTITUTIONAL: The patient denies fever, chills, weight loss. NEUROLOGICAL: The patient denies focal weakness. EYES: The patient denies any new visual changes. He is legally blind. ENT: The patient denies earache, nasal drainage, sore throat. CARDIOVASCULAR: The patient denies chest pain, palpitations, diaphoresis. PULMONARY: The patient denies cough or shortness of breath. GASTROINTESTINAL: Denies nausea, vomiting, diarrhea or abdominal pain. ORTHOPEDIC: The patient complains of no pain in his feet. He has surgical sites did not entirely healed. Others systems in a 14-point review of systems are negative. PHYSICAL EXAMINATION: VITAL SIGNS: The patient's vital at this time include temperature 36.4, pulse 78, respiration of 16, blood pressure 197/88. GENERAL: This is a well-developed male patient who appears to be in minimal distress. [address] [place] [address] CONSULTATION Name: SANG CARNEY Room #: 443-P ADM IN M.R.#: [id number] Admission: 10/22/21 Attend Phys: Guillermo Kirk MD Discharge: Date of : 38 Report #: [id number] HEENT: Head normocephalic. Nose and throat clear. NECK: Supple. LUNGS: Diminished. HEART: Irregular. There is a systolic murmur. ABDOMEN: Soft. EXTREMITIES: Demonstrate feet are pink, warm, and dry. There is scaling and dry skin. The surgical sites following amputations of both second toes are mostly epithelialized, although not entirely closed. They are not infected at this time. NEUROLOGIC: The patient is alert and does discuss it and does move symmetrically. LABORATORY DATA: Sodium 143, potassium 4.1, chloride 109, CO2 of 25, BUN 36, creatinine 1.8, glucose 168. White blood cell count 4.6 with a hemoglobin of 10.8. CLINICAL IMPRESSION: 1. Surgical wounds to both feet, following a prior second toe amputations performed on 07/24/2021. 2. Generalized weakness and deconditioning. 3. Acute on chronic renal failure. 4. Type 2 diabetes mellitus. 5. Atrial fibrillation. 6. Peripheral vascular disease, status post percutaneous intervention. 7. Hypertension. 8. Aortic stenosis. 9. Benign prostatic hypertrophy. 10. Obstructive sleep apnea. 11. Moderate protein-calorie malnutrition. RECOMMENDATIONS: At this point in time, we recommend a moisturizer to his feet bilaterally and otherwise the wound is to be left open to air. We will recommend that he wear socks at all times. He may benefit from PRAFO boots while in bed, if he is going to be at bed rest. Continue with aggressive nutritional support and other medical management. I appreciate being asked to see him in consultation. <ELECTRONICALLY SIGNED> By: Moe Villatoro MD 10/24/21 0822 [id number] Moe Villatoro MD /nt
--- NOTE | 2021-10-24 11:36 | NUR ---
Assess due to initial high risk screening criteria identified. Advanced age 81, admit with generalized weakness, debility and self care deficit. Hx dm, toe amputations, PAD. Pt could not verbalize if he had been losing wt, stating "I'm a poor historian." [email or web address] wts show usual wts around 150 lb, was 136 lb few months ago, now 160 lb. Stated appetite was good. Able to verbalize food preferences. Will follow plan of care. CM working on discharge planning. Low nutrition risk at this time.
[2021-10-24 15:09] VITALS: BP 172/72
--- NOTE | 2021-10-24 17:55 | NUR ---
ASSUMED CARE OF PT AT 0700. PT WILLINGLY WORKS WITH [employer]. CONTINUE WITH POC.
[2021-10-24 20:12] VITALS: BP 165/68
[2021-10-25 03:26] VITALS: BP 158/62
--- NOTE | 2021-10-25 05:48 | NUR ---
PT ASSESSMENT COMPLETED AND VSS. MEDS GIVEN ORDERED AND WELL TOLERATED. FALL PRECAUTIONS IN PLACE. UP TO THE BEDSIDE TO VOID SEVERAL TIMES DURING THE NIGHT USING A URINAL WITH ASST. ASST WITH REPOSITION FOR COMFORT. IVF RUNNING. SLEEPING WELL. PT DENIES NEEDS. WILL CONTINUE TO MONITOR FREQUENTLY.
[2021-10-25 07:00] VITALS: BP 185/83
--- NOTE | 2021-10-25 10:37 | NUR ---
PT RESTING IN BED. PT DENIES ANY PAIN. PT DOES USE URINAL FREQUENTLY. PT STATED HE HAD SURGERY AND HE DID HAVE A SALGADO AND CAME OUT OF SURGERY WITHOUT SALGADO, PT STATED HE WAS VERY HAPPY. PT ALSO TALKING ABOUT HIM ABLE TO WALK WITH A WALKER AND HE WAS HAPPY. PT IS VERY TALKATIVE WITH STAFF. PT HAS TO STAND TO USE URINAL. PT TOOK MEDS SITTING UP ON SIDE OF BED. PT DIDN'T EAT BREAKFAST THIS AM DUE TO SLEEPING.
--- NOTE | 2021-10-25 14:40 | NUR ---
DR. JARRELL STATED THAT HE WANTED PT TO HAVE A SALGADO DUE TO RETENTION. PT REFUSING AT THIS TIME STATED HE JUST HAD ONE OUT AND HE IS FINE, HE STATED I'M GETTING IV FLUIDS SO I AM VOIDING MORE NOW. PT WAS UP TO BATHROOM AND HAD A BM. PT WAS WALKED BACK TO BED AND PLACED BED ALARM ON. PT REFUSED TO TAKE A SIP OF WATER DUE TO HE WOULD HAVE TO VOID AGAIN.
[2021-10-25 16:00] VITALS: BP 187/92
[2021-10-25 19:58] VITALS: BP 163/90
[2021-10-26 07:23] LABS: ALBUMIN 2.7 g/dL (3.4-5.0); CALCIUM 8.5 mg/dL (8.5-10.1); PHOSPHORUS 3.4 mg/dL (2.5-4.9); POTASSIUM 3.9 mmol/L (3.5-5.1)
--- NOTE | 2021-10-26 13:45 | NUR ---
ASSUMED PT CARE THIS AM. PT A&OX4, ABLE TO MAKE NEEDS KNOWN. PATIENT REPORTING NO PAIN. PATIENT URINATING WITH URINAL AT BEDSIDE. PATIENT IS ON ROOM AIR. MORNING MEDICATION TAKEN WITHOUT ISSUE. IV REMAINS PATENT, FLUIDS INFUSING. FALL PRECAUTIONS ARE IN PLACE, CALL LIGHT WITHIN REACH.
[2021-10-26 16:11] VITALS: BP 172/87
[2021-10-26 19:43] VITALS: BP 160/86
[2021-10-27 04:19] VITALS: BP 155/82
[2021-10-27 06:26] LABS: CALCIUM 8.5 mg/dL (8.5-10.1); PHOSPHORUS 3.7 mg/dL (2.6-4.7)
[2021-10-27 07:30] VITALS: BP 175/73
--- NOTE | 2021-10-27 08:27 | NUR ---
PT STANDING AT BEDSIDE USING URINAL. DENIES PAIN.RSETING COMFORTABLY. NO NEEDS VOICED. CALL LIGHT WITHIN REACH. FREQUENT OBSERVATION.
--- NOTE | 2021-10-27 14:23 | NUR ---
ASSUMED PT CARE THIS AM. PT A&OX4, ABLE TO MAKE NEEDS KNOWN. PATIENT REPORTING NO PAIN, NUMBNESS, OR TINGLING. IV REMAINS PATENT, MEDICATIONS INFUSING WITHOUT ISSUE. PATIENT REMAINS ON ROOM AIR. MEDICATIONS TAKEN THIS AM. PATIENT REMAINS CONTINENT, STANDBY ASSIST TO THE BATHROOM. FALL PRECAUTIONS ARE IN PLACE, CALL LIGHT WITHIN REACH.
[2021-10-27 15:25] VITALS: BP 178/88
[2021-10-27 15:55] VITALS: BP 214/100
--- NOTE | 2021-10-27 17:48 | NUR ---
Spoke with patient who reports he just needs private duty at home. Patient reports he was home and not able to care for his diabetes and returned to hospital. Discussed possibly needing post acute care. patient thinks only need someone in home to arrange meals etc. Sp with [facility] who reports they attempted to arrage private duty for patient but he would not want to pay. Arranged care who will not accept patient for return services. 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 faxed clinical to [facility] to determine if can accept for return for rehab. They are reviewing information. Patient does not want casemgt to call his son. Patient does not have a legal guardian as noted in chart. Called "machined parts quality inspector" noted in designated contact. Jerzy who is not a cassemgr for patient. They assisted with private duty in past. She is not a spokesperson for patient. They are no longer affiliated with patient and wish to be removed from list. Updated registration. Only known contact is son.
[2021-10-27 19:50] VITALS: BP 185/81
[2021-10-28 07:31] VITALS: BP 151/65
--- NOTE | 2021-10-28 07:38 | NUR ---
Pt. rested quietly at intervals during the night when checked on during frequent rounds. He offers no complaints of pain. Uses the urinal frequently with stand by assistance. Bed alarm is on.
--- NOTE | 2021-10-28 13:57 | NUR ---
ASSUMED PT CARE THIS AM. PT A&OX4, ABLE TO MAKE NEEDS KNOWN. PATIENT REPORTING NO PAIN, NUMBNESS, OR TINGLING. PATIENT REMAINS CONTINENT, AND IS UP WITH ASSIST TO THE BATHROOM. PATIENT IS ON ROOM AIR. IV REMAINS SALINE LOCKED. FALL PRECAUTIONS ARE IN PLACE, CALL LIGHT WITHIN REACH. PATIENT REQUESTING TO SPEAK WITH DR. LÓPEZ, SHE WAS NOTIFIED.
[2021-10-28 16:40] VITALS: BP 159/116
--- NOTE | 2021-10-28 16:47 | NUR ---
discussed with patient post acute care. Discussed returning to [facility]. patient semi-agreeable. Sp with Agnes at [facility] who reports she wants to sp with patient prior to accepting. She wants to be assured patient in agreement to arrange private duty at home. or possibly assisted living in future. Agnes plans to sp with patient today. Questioned patient if can call his son. he again does not want casemgt to call his son. Discussed at dc from [place] his xwife was involved in his care and dc to home. Patient agreed. Encouraged patient to call xwife to assure someone knows he is at hospital. Patient called xwife in room and forgot he spoke with her yesterday. [facility] plan to return to [facility] if accpting once they sp with patient.
[2021-10-28 18:01] VITALS: BP 136/79
[2021-10-28 22:42] VITALS: BP 192/103
[2021-10-29 05:52] LABS: HEMATOCRIT 30.8 % (42.0-52.0); HEMOGLOBIN 9.9 gm/dL (14.0-18.0); MCH 25.9 pg (26.0-34.0); MCHC 32.1 g/dL (28.0-37.0); MCV 80.7 fL (80.0-100.0); RBC 3.81 mil/uL (4.50-6.00); RDW 18.4 % (10.5-14.5); WBC 4.9 thou/uL (4.0-11.0)
--- NOTE | 2021-10-29 05:53 | NUR ---
ASSUMED CARE OF PT AT 1900. PT ASSESSED TO BE AOX3 81M PRESENTING WITH HYPERGLYCEMIA AND CKD. PT WAS ABLE TO REST QUIETLY THROUGHOUT THE NIGHT WITH NO COMPLAINTS. PT BLOOD PRESSURE EARLY IN EVENING WAS EXTREMELY HIGH WITH SYSTOLIC OF 190. MD HAD ALLOWED NO IV PREVIOUSLY. ATTEMPTED TO GET IV BUT GAVE ORAL HYDRALAZINE PRIOR. PT NOW HAS AN IV, WAS ABLE TO REST QUIETLY IN BED THROUGHOUT THE REST OF NIGHT. CONTINENT IN URINAL, ON ROOM AIR, STABLE TO STAND AT BEDSIDE, NO PAIN.
[2021-10-29 06:18] LABS: CALCIUM 8.5 mg/dL (8.5-10.1); MAGNESIUM 1.7 mg/dL (1.8-2.4); POTASSIUM 3.7 mmol/L (3.5-5.1)
[2021-10-29 07:54] VITALS: BP 148/69
--- NOTE | 2021-10-29 10:47 | NUR ---
ASSUMED CARE OF PT AT 0700 THIS MORNING. PT IS A/OX4 NEZ PERCE, NO COMPLAINTS. ASSESSMENTS NOTED IN CHART. FALL PRECAUTIONS ARE IN PLACE. CALL LIGHT AND OTHER NEEDS ARE IN REACH. MEDS AND TX GIVEN NEEDED AND SCHEDULED. WILL MONITOR AND NOTE ANY CHANGES.
--- NOTE | 2021-10-29 17:00 | NUR ---
Spoke with Agnes at [facility]. She report she sp with patient over phone yesterday. Facility wants someone to be represented to assist with medicaid application and finances if patient should need ltc and or assisted living. They request this casemgr reach out to ex if patient requesting not to sp with son. Sp with patient who does not want casemgt to call Marya. he gave Lisa his xwifes number [phone]. Sp with Lisa explanined need to be assured someone can assist patient with finances if needed. Lisa reports when to patient she knew nothing of any finances. She is in her 80s and can be moral support but cannot assist with decisions or finances. She plans to call Maikol to discuss. She later sp with nikia and reports she sp with Maikol and he is overwhelmed. Patient has not payed taxes from [phone] multiple tax bills in mailbox. His utilities on automatic pay. Unsure if home insurance is paid. Lisa reports Maikol very overwhelmed with situation. She reports Makiol is schzophrenic and cannot handle much stress. Lisa gave caset number for Ezekiel his brother who is involved . Spoke with Agnes at [facility] and discussed above we reached out to xmicki but she cannot assist with decisions or finances. She reports Maikol is overwhelmed. [facility] requests caset to reach out to brother prior to any acceptance.
[2021-10-29 20:04] VITALS: BP 138/65
[2021-10-30 05:14] VITALS: BP 135/72
--- NOTE | 2021-10-30 06:29 | NUR ---
ASSUMED CARE OF PT AT 1900. PT ASSESSED TO BE AOX4 81M PRESENTING POST SYNCOPAL EPISODE AFTER HYPERGLYCEMIC EVENT. PT WAS ABLE TO REST QUIETLY THROUGHOUT THE NIGHT WITH NO COMPLAINTS, VSS.
[2021-10-30 07:10] VITALS: BP 176/60
--- NOTE | 2021-10-30 10:47 | NUR ---
RE-ASSUMED CARE OF PT AT 0700 THIS MORNING. PT HAD NO CHANGE SINCE REPORT LAST NIGHT. ASSESSMENTS NOTED IN CHART AND OTHERWISE UNREMARKABLE. PT IS SB ASST WITH NO AIDS. FALL PRECAUTIONS ARE IN PLACE. PT SHOULD BE DISCHARGES THIS AFTERNOON TO [facility]. CALL LIGHT AND OTHER NEEDS ARE IN REACH. MEDS AND TX GIVEN NEEDED AND SCHEDULED. WILL MONITOR AND NOTE ANY CHANGES.
[2021-10-30 15:25] VITALS: BP 178/74
--- NOTE | 2021-10-30 18:08 | NUR ---
Spoke with Ezekiel casiano brother. he will be tooth cutter contact wheel with [facility]. He reports he has thought of patient moving to [place] in assisted living. Sp with Agnes at [facility] who reports they can accept but dc in am. [facility] 1300 transport to [facility] in am
[2021-10-30 22:14] VITALS: BP 170/82
[2021-10-31 07:36] VITALS: BP 149/71
[2021-10-31 08:41] VITALS: BP 149/71
[2021-10-31] MEDS ORDERED: ACETAMINOPHEN325 M1 PO (09:48)
[2021-10-31] MEDS ORDERED: AMMONIUM LACTA226 GM TOP (09:48)
[2021-10-31] MEDS ORDERED: FLOMAX0.4 MG PO (09:48)
[2021-10-31] MEDS ORDERED: METOPROLOL SUCC50 MG PO (09:48)
[2021-10-31] MEDS ORDERED: TRADJENTA5 MG PO (09:48)
[2021-10-31] MEDS ORDERED: NORVASC5 MG PO (09:48)
--- NOTE | 2021-10-31 16:19 | NUR ---
[facility] able to accept. Faxed orders, chart copied. Left message for cyn and sp with brother Ezekiel to alert of discharge. wc van 1600 via [facility].
--- NOTE | 2021-10-31 17:45 | NUR ---
PT ASSESSED AT START OF SHIFT. FEELING MUCH BETTER. STRENGHT IMPROVED. EATING WELL. DISCHARGING TO [facility] AT THIS TIME W/ ALL BELONGINGS.
== END 2021-10-31 17:37 | DRG 683 ==
LOC: ER 13:26 → 4S 18:09 → EROBS 18:09 → 4S 10-23 16:02
PROVIDERS: Hospitalist; Internal Medicine; Nurse Practitioner; Nurse Practitioner Family; Psychiatry & Neurology Psychiatry; ADMIT Internal Medicine; ATTEND Internal Medicine
DX: N17.9 Acute kidney failure, unspecified (principal); E44.0 Moderate protein-calorie malnutrition; I48.21 Permanent atrial fibrillation; T87.44 Infection of amputation stump, left lower extremity; T87.43 Infection of amputation stump, right lower extremity; E86.0 Dehydration; Z20.822 Contact with and (suspected) exposure to COVID-19; K21.9 Gastro-esophageal reflux disease without esophagitis; E11.51 Type 2 diabetes mellitus with diabetic peripheral angiopathy without gangrene; E11.22 Type 2 diabetes mellitus with diabetic chronic kidney disease; R53.81 Other malaise; G47.33 Obstructive sleep apnea (adult) (pediatric); N18.9 Chronic kidney disease, unspecified; E11.65 Type 2 diabetes mellitus with hyperglycemia; H54.8 Legal blindness, as defined in USA; N40.1 Benign prostatic hyperplasia with lower urinary tract symptoms; R33.8 Other retention of urine; I35.0 Nonrheumatic aortic (valve) stenosis; R62.7 Adult failure to thrive; I12.9 Hypertensive chronic kidney disease with stage 1 through stage 4 chronic kidney disease, or unspecified chronic kidney disease; D63.8 Anemia in other chronic diseases classified elsewhere; F43.20 Adjustment disorder, unspecified; I25.10 Atherosclerotic heart disease of native coronary artery without angina pectoris; Y83.5 Amputation of limb(s) as the cause of abnormal reaction of the patient, or of later complication, without mention of misadventure at the time of the procedure; F20.9 Schizophrenia, unspecified; E78.5 Hyperlipidemia, unspecified; Z89.422 Acquired absence of other left toe(s); Z89.421 Acquired absence of other right toe(s); Z95.820 Peripheral vascular angioplasty status with implants and grafts; Z98.42 Cataract extraction status, left eye; Z98.41 Cataract extraction status, right eye; Z79.899 Other long term (current) drug therapy; Z79.01 Long term (current) use of anticoagulants; Z79.4 Long term (current) use of insulin; Z91.041 Radiographic dye allergy status; Z68.24 Body mass index [BMI] 24.0-24.9, adult; Y92.89 Other specified places as the place of occurrence of the external cause; Z91.14 Patient's other noncompliance with medication regimen
CPT/HCPCS: 10195